=== PATIENT | female | born 1955 | race Caucasian/White ===

== ENCOUNTER 2025-02-12 16:37 | Inpatient (IN) | payer MEDICARE, SELFPAY ==
[2025-02-12] VITALS (62 sets, daily range): BP systolic 88–161; BP diastolic 54–108; PULSE 81–162; RESP 14–25; TEMP 35.8–36.4; O2SAT 93–98; BMI 37.4
--- NOTE | 2025-02-12 16:38 | ED_ITS ---
HPI - General Adult General Chief complaint: Weakness Stated complaint: Afib RVR, weakness Time Seen by Provider: 02/12/25 16:38 History of Present Illness HPI narrative: 69-year-old woman with care in [facility] [place] and at [facility], no prior records are available with [facility]. [facility] review indicates that she was admitted to [facility] from December 26 to December 30 for atrial fibrillation with rapid ventricular response. Multiple medical changes were made at that time. She was to stop taking chlorthalidone, Lovenox, lisinopril and metoprolol. She was to start taking carvedilol 25 mg b.i.d., furosemide 20 mg daily for heart failure, Entresto for heart failure, Eliquis 5 mg b.i.d. to prevent stroke secondary to her atrial fibrillation, Synthroid 125 mcg with a note made to recheck thyroid levels and metformin daily. She apparently had been on insulin but needed almost no insulin while hospitalized. Additional notes to consider starting Jardiance and spironolactone for her heart failure with reduced ejection fraction if kidney function recovers and to discuss continued marijuana cessation With her recent Located within [facility] admission she was treated with metoprolol, diltiazem and heparin drip with plans for cardioversion but converted spontaneously and remained in sinus rhythm at time of discharge on December 30. Echocardiogram showed reduced ejection fraction at 25-30%. Additional issues with that hospitalization included continued abdominal pain that was eventually determined to be constipation. There were significant questions regarding medication compliance. Notes from the [facility] records indicate that she had been admitted to [facility] with a urinary tract infection in early December. Patient was brought in by medics today, apparently her boyfriend with whom she lives called because she was increasingly confused. She is not oriented to events or place, complaints of shortness of breath, some mild abdominal pain and when asked about her [facility] hospitalization and medication changes she seems significantly puzzled and it is not clear that she has made any changes or has been taking any of her medications. Related Data Allergies Allergy/AdvReac Type Severity Reaction Status Date / Time No Known Drug Allergies Allergy Verified 02/12/25 17:00 Review of Systems Review of Systems ROS Unobtainable: Unobtainable due to mental status/LOC Patient History Medical History Anxiety Hypertension Type 2 diabetes mellitus Chronic constipation Hypothyroidism (acquired) Chronic atrial fibrillation Congestive heart failure Social History Smoking Status: Never smoker Exam Initial Vital Signs Initial Vital Signs: Vital Signs Pulse Rate 149 H 02/12/25 16:53 Respiratory Rate 25 H 02/12/25 16:53 Pulse Oximetry 96 02/12/25 16:53 General: Chronically ill-appearing, disheveled, slightly confused but able to speak in full sentences HEENT: Moist mucous membranes, normal sclera with reactive pupils, Respiratory: Lungs with mild basilar rales, no rhonchi, no significant respiratory distress Cardiac: Significant tachycardia, irregular Abdomen: Soft, obese, mild diffuse tenderness without rebound or guarding. No flank pain Skin: Warm and dry, no rashes Neurologic: No localizing neurologic findings, she is not oriented to place time or events Extremities: No trauma, mild bilateral lower extremity edema Psych: Cooperative, poor overall insight Course Orders Ordered: ED Orders 02/12/25 16:39 XR chest 1V Stat Urinalysis and Microscopic Stat EKG-12 Lead Stat 02/12/25 17:10 Complete Blood Count AUTO DIFF Stat Comprehensive Metabolic Panel Stat Lipase Stat Magnesium Stat NT-proBNP (BNP-Adult 18+) Stat Troponin I Stat 02/12/25 18:08 CT head/brain wo con Stat 02/12/25 21:03 XR abdomen 1V Stat Trop I [Troponin I] Stat Carvedilol (Carvedilol 12.5 Mg Tablet) 25 mg PO BID JOELLE Last Admin: 02/12/25 20:17 Dose: Not Given Documented By: Admin: 02/12/25 18:16 Dose: 25 mg Documented By: ES Diltiazem HCl 125 mg/ Sodium (Chloride) 125 mls @ 5 mls/hr IV TITRATE JOELLE; Protocol Last Titration: 02/12/25 20:12 Dose: 0 mg/hr, 0 mls/hr Documented By: Titration: 02/12/25 19:40 Dose: 5 mg/hr, 5 mls/hr Documented By: Titration: 02/12/25 19:32 Dose: 10 mg/hr, 10 mls/hr Documented By: Titration: 02/12/25 18:56 Dose: 15 mg/hr, 15 mls/hr Documented By: Titration: 02/12/25 18:21 Dose: 10 mg/hr, 10 mls/hr Documented By: Admin: 02/12/25 17:57 Dose: 5 mg/hr, 5 mls/hr Documented By: ACE Magnesium Sulfate (Magnesium Sulfate) 20 gm in 500 mls @ 25 mls/hr IV CONT JOELLE Discontinued Medications Diltiazem HCl (Diltiazem 25 Mg/5 Ml Sdv) 20 mg IV NOW ONE Stop: 02/12/25 17:42 Last Admin: 02/12/25 17:59 Dose: 20 mg Documented By: ACE Furosemide 80 mg/ Sodium (Chloride) 58 mls @ 116 mls/hr IV NOW ONE Stop: 02/12/25 21:04 Vital Signs Vital signs: Vital Signs - 8 hr 02/12/25 16:53 02/12/25 16:59 02/12/25 17:00 Temperature 97.5 F L Pulse Rate 149 H 159 H Respiratory Rate 25 H 17 Blood Pressure 146/106 H 161/108 H Pulse Oximetry 96 97 Oxygen Delivery Method Room Air 02/12/25 17:00 02/12/25 17:02 02/12/25 17:02 Temperature Pulse Rate 146 H 145 H Respiratory Rate 25 H 18 Blood Pressure 160/108 H Pulse Oximetry 97 98 Oxygen Delivery Method Room Air 02/12/25 17:30 02/12/25 17:57 02/12/25 17:58 Temperature Pulse Rate 157 H 154 H Respiratory Rate 19 Blood Pressure 135/90 135/90 Pulse Oximetry 95 Oxygen Delivery Method 02/12/25 17:58 02/12/25 17:59 02/12/25 18:00 Temperature Pulse Rate 162 H 159 H Respiratory Rate 20 Blood Pressure 135/90 149/97 H Pulse Oximetry 96 Oxygen Delivery Method 02/12/25 18:00 02/12/25 18:15 02/12/25 18:15 Temperature Pulse Rate 156 H 134 H Respiratory Rate 22 18 Blood Pressure 140/82 Pulse Oximetry 96 94 Oxygen Delivery Method 02/12/25 18:16 02/12/25 18:23 02/12/25 18:23 Temperature Pulse Rate 135 H 142 H Respiratory Rate 18 Blood Pressure 140/82 146/80 H Pulse Oximetry 95 Oxygen Delivery Method Room Air 02/12/25 18:30 02/12/25 18:41 02/12/25 18:41 Temperature Pulse Rate 132 H Respiratory Rate Blood Pressure 136/99 H Pulse Oximetry 96 95 Oxygen Delivery Method Room Air 02/12/25 18:54 02/12/25 18:54 02/12/25 19:00 Temperature Pulse Rate 132 H 121 H Respiratory Rate 24 24 Blood Pressure 137/76 Pulse Oximetry 95 96 Oxygen Delivery Method Room Air 02/12/25 19:00 02/12/25 19:10 02/12/25 19:10 Temperature Pulse Rate 114 H Respiratory Rate 22 Blood Pressure 131/79 138/73 Pulse Oximetry 95 Oxygen Delivery Method Room Air 02/12/25 19:30 02/12/25 19:30 02/12/25 19:32 Temperature Pulse Rate 108 H Respiratory Rate 25 H Blood Pressure 95/61 103/73 Pulse Oximetry 98 Oxygen Delivery Method 02/12/25 19:32 02/12/25 19:36 02/12/25 19:36 Temperature Pulse Rate 112 H 87 Respiratory Rate 24 24 Blood Pressure 101/68 Pulse Oximetry 96 96 Oxygen Delivery Method 02/12/25 19:38 02/12/25 19:39 02/12/25 19:39 Temperature Pulse Rate 107 H 91 H Respiratory Rate 21 Blood Pressure 108/71 Pulse Oximetry 97 96 Oxygen Delivery Method Room Air 02/12/25 19:40 02/12/25 19:40 02/12/25 19:46 Temperature Pulse Rate 95 H 95 H Respiratory Rate Blood Pressure 113/63 Pulse Oximetry 96 95 Oxygen Delivery Method Room Air 02/12/25 19:46 02/12/25 19:56 02/12/25 19:56 Temperature Pulse Rate 101 H Respiratory Rate Blood Pressure 143/70 H 94/54 L Pulse Oximetry 95 Oxygen Delivery Method 02/12/25 20:00 02/12/25 20:00 02/12/25 20:09 Temperature Pulse Rate 82 Respiratory Rate Blood Pressure 105/67 92/64 Pulse Oximetry 98 Oxygen Delivery Method 02/12/25 20:09 02/12/25 20:10 02/12/25 20:10 Temperature Pulse Rate 89 95 H Respiratory Rate 22 Blood Pressure 89/68 L Pulse Oximetry 97 97 Oxygen Delivery Method Room Air 02/12/25 20:12 02/12/25 20:12 02/12/25 20:15 Temperature Pulse Rate 95 H Respiratory Rate 21 Blood Pressure 96/71 88/69 L Pulse Oximetry 97 Oxygen Delivery Method 02/12/25 20:15 Temperature Pulse Rate 88 Respiratory Rate 17 Blood Pressure Pulse Oximetry 97 Oxygen Delivery Method Room Air Medical Decision Making Lab Data 02/12/25 17:10 02/12/25 17:10 Labs: Lab Results 02/12/25 02/12/25 Range/Units 17:03 17:10 WBC 7.9 (4.5-11.0) X10^3/uL RBC 3.61 L (4.0-5.2) X10^6/uL Hgb 10.7 L (12.0-16.0) g/dL Hct 33.0 L (36-46) % MCV 91.2 (80-100) fL MCH 29.6 (26-34) PG MCHC 32.4 (30-36) % RDW 17.4 H (11.6-14.8) % Plt Count 237 (150-400) X10^3/uL Neut % (Auto) 72.1 (50-75) % Lymph % (Auto) 15.3 L (25-40) % Real % (Auto) 10.5 (3-14) % Eos % (Auto) 1.5 L (2-4) % Baso % (Auto) 0.6 (0-2) % Neut # (Auto) 5700 (6423-8333) /uL Lymph # (Auto) 1200 (6940-2591) /uL Real # (Auto) 800 (0-900) /uL Eos # (Auto) 100 (0-450) /uL Baso # (Auto) 100 (0-100) /uL Sodium 137 (137-145) mmol/L Potassium 4.6 (3.4-5.1) mmol/L Chloride 108 H (98-107) mmol/L Carbon Dioxide 21 L (22-32) mmol/L BUN 40 H (7-17) mg/dL Creatinine 1.43 H (0.52-1.04) mg/dL Estimated GFR 40 L (>60) mL/min BUN/Creatinine Ratio 28.0 H (6-22) Glucose 192 H (70-99) mg/dL POC Whole Bld Glucose 189 H (70-99) mg/dL Calcium 8.5 (8.4-10.2) mg/dL Magnesium 1.1 L (1.6-2.3) mg/dL Total Bilirubin 0.5 (0.2-1.3) mg/dL AST 58 H (14-36) IU/L ALT 134 H (<35) IU/L Alkaline Phosphatase 111 (38-126) U/L Troponin I 0.069 H (0.01-0.034) ng/mL NT-Pro-B Natriuret Pep 15114 H (<125) pg/mL Total Protein 6.0 L (6.3-8.2) g/dL Albumin 3.1 L (3.5-5.0) g/dL Globulin 2.9 (1.7-4.1) g/dL Albumin/Globulin Ratio 1.1 (1.0-2.8) Lipase 16 L (23-300) U/L MDM Narrative Medical decision making narrative: CC: Atrial fibrillation with rapid ventricular response, Worsening confusion Complicating co-morbidities: Heart failure with reduced ejection fraction, medication noncompliance, diabetes, hypothyroidism, depression Data collected from: patient, medics Social determinants of health that may influence the patients condition: Lives with her boyfriend Medical records reviewed: See HPI for summary of [facility] recent hospital admission Current medication list should be carvedilol 25 mg 2, b.i.d. 20 mg furosemide daily Entresto 09/24/2025 b.i.d. Eliquis 5 mg b.i.d. Gabapentin 100 mg t.i.d. Lantus 30 units subcutaneous b.i.d. was held, lispro 5 mg b.i.d. was held Synthroid 125 mcg Glucophage 500 mg b.i.d. As needed sublingual nitro Prilosec 20 mg daily Paxil 40 mg Differential considered: AFib with rapid ventricular response with worsening congestive heart failure, fluid overload, acute alcohol intoxication, acute marijuana intoxication, acute coronary syndrome, stroke or intracranial hemorrhage, without fever, cough, chills doubt infectious etiology Exam documented above, pertinent findings include: Disheveled, atrial fibrillation, tachycardic, bibasilar rales, mild lower extremity edema, confusion Lab Test results independently reviewed as above. Pertinent findings: CBC shows a white count of 7.9. Hemoglobin of 10.7, it was 10.6 on December 30, platelets appropriate at 2:37 a.m. Chemistries show creatinine at 1.4, had been 1.67 a month ago. GFR slightly improved from 33 up to 40. Magnesium was low at 1.1 Lipase is low at 16 BNP significantly elevated at almost 19,000 Slightly elevated at 0.069 repeat 0.079 Anion gap is calculated at 8 Independently reviewed EKG: Atrial fibrillation at a rate of 151. No acute ischemic changes Imaging studies independently reviewed: Chest x-ray is unremarkable CT scan of the head does not show significant pathology X-ray of the abdomen shows mild stool without significant obstruction Consultations: Dr. Velázquez, cardiology, we will consult in the morning Treatments: Diltiazem drip, oral carvedilol, IV magnesium, IV furosemide Discussion: 69-year-old woman presents by medics with atrial fibrillation with rapid ventricular response, worsening congestive heart failure with presumed troponin leak. Troponins are lower than were noted with hospitalization in December. Rate has responded to diltiazem. She has had appropriate urine output after IV Lasix. There was no evidence of ischemia on her EKG and chest x-ray actually does not show dramatic volume overload Regarding her confusion I do not have a complete explanation. Alcohol, marijuana ammonia levels are pending, no intracranial abnormalities. Patient complains of abdominal pain that is not reproducible on palpation, constipation is suspected TSH and T4 are currently pending Glucose is elevated at 192 and anion gap is normal at 8. No evidence of DKA or HHS No leukocytosis, no signs or symptoms of infectious etiology or concerns for sepsis at this time With presentation so similar to that from December 26, I suspect that medication noncompliance has been a significant component of her current exacerbation of prior medical issues Patient will be admitted for control of her rapid atrial fibrillation, diuresis and attempts to maximize treatment for her congestive heart failure and treatment of assorted medical issues as listed above. With discharge she may well benefit with home health consult for medication management assistance. She is safe for transfer to the floor Discharge Plan Departure Patient Disposition: Admitted As Inpatient Clinical Impression: Atrial fibrillation with rapid ventricular response, Acute exacerbation of chronic heart failure, Elevated troponin, Acute confusion, Chronic constipation Admit Date/Time: 02/12/25 23:04 Admit Provider: Cameron Couch
--- NOTE | 2025-02-12 16:39 | DI.RAD.S_ITS ---
PROCEDURE: XR CHEST 1V INDICATIONS: a fib with RVR TECHNIQUE: One view of the chest was acquired. COMPARISON: [facility], CR, XR CHEST 1 VIEW, 12/26/2024, 18:16. FINDINGS: Surgical changes and devices: None. Lungs and pleura: Lungs are clear. No pleural effusions or pneumothorax. Mediastinum: Mediastinal contours appear normal. Heart size is significantly enlarged, stable compared to prior.. Bones and chest wall: No suspicious bony lesions. Overlying soft tissues appear unremarkable. IMPRESSION: Stable cardiomegaly. No acute pulmonary process. Dictated by: Jesus Guadarrama M.D. on 02/12/2025 at 17:00 Approved by: Jesus Guadarrama M.D. on 02/12/2025 at 17:00
--- NOTE | 2025-02-12 16:39 | EKG_ITS ---
[id number] [address] Test Date: 2025-02-12 Pat Name: Kirsten Ratliff Department: Room: Gender: Female Grid Caster: CONOR : 1955 Requested By: Order Number: [id number] Reading MD: Ted Arceo Measurements Intervals [place] Rate: 151 P: NC: QRS: -45 QRSD: 86 T: 128 QT: 312 QTc: 494 Interpretive Statements Critical Test Result: High HR Atrial fibrillation with rapid ventricular response Left anterior fascicular block Nonspecific ST and T wave abnormality Electronically Signed On 02-13-2025 17:27:20 PDT by Ted Arceo
[2025-02-12 17:21] LABS: Add Manual Diff / Slide Review NO; Hematocrit 33.0 % (36-46); Hemoglobin 10.7 g/dL (12.0-16.0); Lymphocytes Absolute Auto 1200 /uL (1100-4500); Mean Corpuscular HGB Conc 32.4 % (30-36); Mean Corpuscular Hemoglobin 29.6 PG (26-34); Mean Corpuscular Volume 91.2 fL (80-100); Platelet Count 237 X10^3/uL (150-400)
[2025-02-12 17:38] LABS: Alanine Aminotransferase 134 IU/L (<35); Albumin 3.1 g/dL (3.5-5.0); Albumin Globulin Ratio 1.1 (1.0-2.8); Alkaline Phosphatase 111 U/L (38-126); Blood Urea Nitrogen 40 mg/dL (7-17); Calcium 8.5 mg/dL (8.4-10.2); Carbon Dioxide 21 mmol/L (22-32); Chloride 108 mmol/L (98-107); Estimated Glomerular Filt Rate 40 mL/min (>60); Globulin 2.9 g/dL (1.7-4.1); Glucose 192 mg/dL (70-99); HEMOLYSIS < 15 (0-50); Lipase 16 U/L (23-300); Magnesium 1.1 mg/dL (1.6-2.3); Potassium 4.6 mmol/L (3.4-5.1); Sodium 137 mmol/L (137-145); Total Protein 6.0 g/dL (6.3-8.2)
[2025-02-12 17:50] LABS: NT-proBNP (BNP-Adult 18+) 18900 pg/mL (<125); Troponin I 0.069 ng/mL (0.01-0.034)
--- NOTE | 2025-02-12 18:08 | DI.CT.S_ITS ---
PROCEDURE: CT HEAD/BRAIN WO CON INDICATIONS: altered mental status TECHNIQUE: Noncontrast 4.5 mm thick angled axial sections acquired from the foramen magnum to the vertex, with coronal and sagittal reformats. For radiation dose reduction, the following was used: automated exposure control, adjustment of mA and/or kV according to patient size. COMPARISON: None. FINDINGS: Image quality: Diagnostic. CSF spaces: Basal cisterns are patent. No extra-axial fluid collections. The ventricles are symmetric in size and shape. Brain: No intracranial bleeds or mass effect. There is cerebral volume loss, with resultant ventricular and sulcal prominence. There are periventricular and deep white matter chronic small vessel ischemic changes. There is intracranial internal carotid artery atherosclerosis. Skull and face: Calvarium and visualized facial bones appear intact, without suspicious lesions. Sinuses: Visualized sinuses and mastoids are clear. IMPRESSION: No acute intracranial pathology. Dictated by: Jesus Guadarrama M.D. on 02/12/2025 at 19:01 Approved by: Jesus Guadarrama M.D. on 02/12/2025 at 19:02
--- NOTE | 2025-02-12 21:03 | DI.RAD.S_ITS ---
PROCEDURE: XR ABDOMEN 1V INDICATIONS: abdominal pain TECHNIQUE: One view of the abdomen acquired. COMPARISON: [facility], CT, CT ABDOMEN PELVIS WITH CONTRAST, 12/26/2024, 18:34. FINDINGS: Surgical changes and devices: None. Bowel: Bowel gas pattern is normal. Mild scattered colonic stool. Soft tissues: No suspicious abdominal calcifications. Visualized solid organ contours appear normal in size. Bones: No suspicious bony lesions. IMPRESSION: Mild stool without obstruction. Dictated by: Maria T Duncan M.D. on 02/12/2025 at 21:31 Approved by: Maria T Duncan M.D. on 02/12/2025 at 21:31
--- NOTE | 2025-02-12 22:12 | PC.NURSE ---
This RN verifies with provider Devang medications that are currently ordered. Per Provdier Devang patient is to get 2gm of magnesium and not 20gm as per order. Will call [facility] to correct order.
[2025-02-12] MEDS: FUROSEMIDE 80 MG in SODIUM CHLORIDE 0.9% 50 ML 116 MG IV (22:25)
[2025-02-12 22:59] LABS: Troponin I 0.079 ng/mL (0.01-0.034)
[2025-02-12] MEDS: MAGNESIUM SULFATE 2 GM/50 ML PIGGYBACK IV (23:02)
[2025-02-13] VITALS (59 sets, daily range): BP systolic 92–152; BP diastolic 57–102; PULSE 67–126; RESP 0–35; TEMP 36–36.5; O2SAT 89–98; BMI 35.9
--- NOTE | 2025-02-13 00:10 | PC.WOUNDPHOT ---
under right breast under left breast right groin left groin coccyx
[2025-02-13 00:35] LABS: Ammonia (NH3) < 9 umol/L (9-30); Ethanol (ETOH) < 10 mg/dL (<10)
[2025-02-13] MEDS: HEPARIN 5,000 UNIT/ML VIAL 5000 UNIT SUBCUT (01:19)
[2025-02-13 01:46] LABS: MRSA (Nasal) PCR NOT DETECTED (Not Detect)
[2025-02-13 02:04] LABS: Appearance Urine UA CLEAR; Bilirubin Urine UA NEGATIVE (NEGATIVE); Color Urine UA YELLOW; Glucose Urine UA NEGATIVE (Negative); Ketones Urine UA NEGATIVE (NEGATIVE); Leukocyte Esterase Urine UA 1+ (NEGATIVE); Nitrite Urine UA NEGATIVE (Negative); Occult Blood Urine UA NEGATIVE (Negative); Protein Urine UA NEGATIVE (Negative); Specific Gravity Urine UA 1.010 (1.000-1.035); Urobilinogen Urine UA 0.2 E.U./dL (0.2)
[2025-02-13 02:21] LABS: UR Morphine/Opiate cutoff 300 Negative (Negative); Ur Specific Gravity Normal (Normal); Urine MDMA Negative (Negative); Urine Methamphetamines Negative (Negative); Urine Tetrahydrocannabinol Positive (Negative); Urine Tricyclic Antidepressant Positive (Negative); pH Urine UA 5.5 (4.5-8.0)
[2025-02-13 02:22] LABS: Culture Indicated Urine Specimen Cultured
[2025-02-13] MEDS: ACETAMINOPHEN 325 MG TABLET 650 MG PO (03:38)
[2025-02-13 05:25] LABS: Add Manual Diff / Slide Review NO; Hematocrit 30.5 % (36-46); Hemoglobin 9.9 g/dL (12.0-16.0); Lymphocytes Absolute Auto 1800 /uL (1100-4500); Mean Corpuscular HGB Conc 32.6 % (30-36); Mean Corpuscular Hemoglobin 29.4 PG (26-34); Mean Corpuscular Volume 90.3 fL (80-100); Platelet Count 211 X10^3/uL (150-400)
[2025-02-13 05:41] LABS: Blood Urea Nitrogen 40 mg/dL (7-17); Calcium 8.5 mg/dL (8.4-10.2); Carbon Dioxide 21 mmol/L (22-32); Chloride 107 mmol/L (98-107); Estimated Glomerular Filt Rate 40 mL/min (>60); Glucose 113 mg/dL (70-99); HEMOLYSIS < 15 (0-50); Potassium 4.0 mmol/L (3.4-5.1); Sodium 137 mmol/L (137-145)
--- NOTE | 2025-02-13 06:24 | P.HP_ITS ---
History of Present Illness History of Present Illness Date Patient Seen: 02/13/25 Time Patient Seen: 01:22 Chief complaint: Afib RVR, weakness Narrative: 69-year-old female with past medical history of atrial fibrillation on Eliquis, severe chronic systolic heart failure with an EF of 25%, hypertension, anxiety and diabetes presents with generalized weakness and possible confusion. Per report the patient's boyfriend who she lives with called EMS because of possible increased confusion. It was reported that the patient was not oriented to place and was complaining of mild abdominal pain. In addition it is unclear if the patient has been compliant with her medication which include Lasix, Eliquis, metoprolol and Synthroid. The patient also was recently hospitalized at [facility] with similar complaints of confusion and abdominal pain. The patient then did have atrial fibrillation with RVR. However during my interview the patient was oriented to place person and time. The patient denies any fever, chills, nausea, vomiting, diarrhea, chest pain or shortness of breath. In the emergency room, the patient was hemodynamically stable but was in A-fib with RVR. Labs were relatively benign except for creatinine 1.4 glucose of 192 troponin 0.06 and BNP of 18,900. AST mildly elevated at [address] of the head shows no acute finding and x-ray of the abdomen shows only mild stool without signs of small bowel obstruction. Chest x-ray however did not show obvious signs of pulmonary edema. The patient was given IV Lasix 80 mg as well as diltiazem drip was initiated. Dr. eVlázquez from cardiology was consulted and a request for admission for ongoing management of A-fib with RVR. [facility] Medical History Anxiety Hypertension Type 2 diabetes mellitus Chronic constipation Hypothyroidism (acquired) Chronic atrial fibrillation Congestive heart failure Social History household members: significant other Smoking Status: Never smoker Meds Home Medications and Allergies Allergies Allergy/AdvReac Type Severity Reaction Status Date / Time No Known Drug Allergies Allergy Verified 02/12/25 17:00 Review of Systems Review of Systems ROS: Yes All systems reviewed with the patient and are negative except as otherwise documented Exam Vital Signs (past 8 hours): - 02/12/25 22:28 02/12/25 22:28 02/12/25 22:30 Temperature Pulse Rate 105 H 103 H Respiratory Rate Blood Pressure 112/83 Pulse Oximetry 97 97 Oxygen Delivery Method Oxygen Flow Rate 02/12/25 22:31 02/12/25 22:31 02/12/25 22:42 Temperature Pulse Rate 104 H 110 H Respiratory Rate Blood Pressure 134/92 H Pulse Oximetry 96 97 Oxygen Delivery Method Room Air Oxygen Flow Rate 02/12/25 22:42 02/12/25 22:50 02/12/25 22:50 Temperature Pulse Rate 105 H Respiratory Rate 16 Blood Pressure 125/86 126/89 Pulse Oximetry 98 Oxygen Delivery Method Oxygen Flow Rate 02/12/25 23:00 02/12/25 23:00 02/12/25 23:11 Temperature Pulse Rate 110 H Respiratory Rate Blood Pressure 122/82 117/93 H Pulse Oximetry 98 Oxygen Delivery Method Oxygen Flow Rate 02/12/25 23:11 02/12/25 23:20 02/12/25 23:20 Temperature Pulse Rate 114 H 113 H Respiratory Rate Blood Pressure 125/93 H Pulse Oximetry 98 98 Oxygen Delivery Method Oxygen Flow Rate 02/12/25 23:30 02/12/25 23:30 02/12/25 23:45 Temperature 96.5 F L Pulse Rate 108 H 115 H Respiratory Rate 21 Blood Pressure 132/96 H 128/90 Pulse Oximetry 97 98 Oxygen Delivery Method Oxygen Flow Rate 0 02/13/25 00:00 02/13/25 00:07 02/13/25 00:30 Temperature Pulse Rate 110 H 112 H Respiratory Rate 16 9 L Blood Pressure Pulse Oximetry 98 Oxygen Delivery Method Room Air Oxygen Flow Rate 02/13/25 01:00 02/13/25 01:00 02/13/25 01:18 Temperature Pulse Rate 118 H 114 H Respiratory Rate 13 Blood Pressure 112/82 112/82 Pulse Oximetry 95 Oxygen Delivery Method Oxygen Flow Rate 02/13/25 01:30 02/13/25 02:00 02/13/25 02:00 Temperature Pulse Rate 114 H 113 H Respiratory Rate 17 25 H Blood Pressure 125/74 Pulse Oximetry 94 97 Oxygen Delivery Method Oxygen Flow Rate 02/13/25 02:30 02/13/25 02:33 02/13/25 02:33 Temperature Pulse Rate 117 H 115 H Respiratory Rate 16 16 Blood Pressure 138/87 Pulse Oximetry 94 96 Oxygen Delivery Method Oxygen Flow Rate 02/13/25 03:00 02/13/25 03:00 02/13/25 03:30 Temperature 96.8 F L Pulse Rate 114 H 126 H Respiratory Rate 14 24 Blood Pressure 134/94 H Pulse Oximetry 91 Oxygen Delivery Method Oxygen Flow Rate 0 02/13/25 03:34 02/13/25 03:34 02/13/25 04:00 Temperature Pulse Rate 115 H 101 H Respiratory Rate 9 L 15 Blood Pressure 122/78 Pulse Oximetry 97 93 Oxygen Delivery Method Oxygen Flow Rate 02/13/25 04:00 02/13/25 04:30 02/13/25 04:30 Temperature Pulse Rate 103 H Respiratory Rate 16 Blood Pressure 132/87 127/85 Pulse Oximetry 91 Oxygen Delivery Method Oxygen Flow Rate 02/13/25 05:00 02/13/25 05:00 02/13/25 05:30 Temperature Pulse Rate 106 H 108 H Respiratory Rate 18 15 Blood Pressure 128/87 Pulse Oximetry 89 L 90 L Oxygen Delivery Method Oxygen Flow Rate 02/13/25 05:30 02/13/25 06:00 02/13/25 06:00 Temperature Pulse Rate 104 H Respiratory Rate 26 H Blood Pressure 129/90 129/97 H Pulse Oximetry 89 L Oxygen Delivery Method Oxygen Flow Rate Oxygen Delivery Method Room Air Oxygen Flow Rate 0 Narrative Exam Narrative: Physical Exam: GENERAL: The patient is not in any acute distressed. Awake and alert. HEENT: Nonicteric sclerae, PERRLA, EOMI. Oropharynx clear. Moist mucous membranes. Conjunctivae appear well perfused. HEART: Tachycardic with irregrhythm without murmurs. 1+ lower extremities edema. LUNGS: Clear to auscultation bilaterally. No wheezing, crackles or rhonchi ABDOMEN: Soft, positive bowel sounds, nontender. SKIN: No rash, no excessive bruising, petechiae, or purpura. NEUROLOGIC: AxO x 3. Cranial nerves II-XII intact without motor/sensory deficit. Objective Labs 02/13/25 04:20 02/13/25 04:20 Labs: Laboratory Results - last 24 hr 02/12/25 02/12/25 02/12/25 17:03 17:10 22:27 WBC 7.9 RBC 3.61 L Hgb 10.7 L Hct 33.0 L MCV 91.2 MCH 29.6 MCHC 32.4 RDW 17.4 H Plt Count 237 Neut % (Auto) 72.1 Lymph % (Auto) 15.3 L Adams % (Auto) 10.5 Eos % (Auto) 1.5 L Baso % (Auto) 0.6 Neut # (Auto) 5700 Lymph # (Auto) 1200 Adams # (Auto) 800 Eos # (Auto) 100 Baso # (Auto) 100 Sodium 137 Potassium 4.6 Chloride 108 H Carbon Dioxide 21 L BUN 40 H Creatinine 1.43 H Estimated GFR 40 L BUN/Creatinine Ratio 28.0 H Glucose 192 H POC Whole Bld Glucose 189 H Calcium 8.5 Magnesium 1.1 L Total Bilirubin 0.5 AST 58 H ALT 134 H Alkaline Phosphatase 111 Ammonia Troponin I 0.069 H 0.079 H NT-Pro-B Natriuret Pep 82780 H Total Protein 6.0 L Albumin 3.1 L Globulin 2.9 Albumin/Globulin Ratio 1.1 Lipase 16 L Urine Color Urine Appearance Urine pH Ur Specific [place] Urine Protein Urine Glucose (UA) Urine Ketones Urine Occult Blood Urine Nitrate Urine Bilirubin Urine Urobilinogen Ur Leukocyte Esterase Urine RBC Urine WBC Ur Squamous Epith Cells Urine Bacteria Ur Culture Indicated? Vol Urine Centrifuged Nasal Screen MRSA (PCR) U Opiates 300ng/mL cut Ur Oxycodone Screen Urine Methadone Screen Ur Barbiturates Screen U Tricyclic Antidepress Ur Phencyclidine Scrn Ur Amphetamines Screen U Methamphetamines Scrn Ur MDMA Scrn (Ecstasy) U Benzodiazepines Scrn Urine Cocaine Screen U Marijuana (THC) Screen Urine Specific [place] Ethyl Alcohol Ur Creatinine 02/13/25 02/13/25 02/13/25 00:12 00:15 01:45 WBC RBC Hgb Hct MCV MCH MCHC RDW Plt Count Neut % (Auto) Lymph % (Auto) Adams % (Auto) Eos % (Auto) Baso % (Auto) Neut # (Auto) Lymph # (Auto) [place] # (Auto) Eos # (Auto) Baso # (Auto) Sodium Potassium Chloride Carbon Dioxide BUN Creatinine Estimated GFR BUN/Creatinine Ratio Glucose POC Whole Bld Glucose Calcium Magnesium Total Bilirubin AST ALT Alkaline Phosphatase Ammonia < 9 L Troponin I NT-Pro-B Natriuret Pep Total Protein Albumin Globulin Albumin/Globulin Ratio Lipase Urine Color Yellow Urine Appearance Clear Urine pH 5.5 Ur Specific [place] 1.010 Urine Protein Negative Urine Glucose (UA) Negative Urine Ketones Negative Urine Occult Blood Negative Urine Nitrate Negative Urine Bilirubin Negative Urine Urobilinogen 0.2 Ur Leukocyte Esterase 1+ H Urine RBC None seen Urine WBC 0-1/hpf Ur Squamous Epith Cells 0-1 /hpf Urine Bacteria Few (2-10) H Ur Culture Indicated? Specimen cultured Vol Urine Centrifuged 10ml (spun) Nasal Screen MRSA (PCR) Not detected U Opiates 300ng/mL cut Negative Ur Oxycodone Screen Negative Urine Methadone Screen Negative Ur Barbiturates Screen Negative U Tricyclic Antidepress Positive H Ur Phencyclidine Scrn Negative Ur Amphetamines Screen Negative U Methamphetamines Scrn Negative Ur MDMA Scrn (Ecstasy) Negative U Benzodiazepines Scrn Negative Urine Cocaine Screen Negative U Marijuana (THC) Screen Positive H Urine Specific [place] Ethyl Alcohol < 10 Ur Creatinine 02/13/25 02/13/25 01:45 04:20 WBC 6.1 RBC 3.38 L Hgb 9.9 L Hct 30.5 L MCV 90.3 MCH 29.4 MCHC 32.6 RDW 17.1 H Plt Count 211 Neut % (Auto) 53.7 Lymph % (Auto) 29.1 [place] % (Auto) 12.3 Eos % (Auto) 4.1 H Baso % (Auto) 0.8 Neut # (Auto) 3300 Lymph # (Auto) 1800 [place] # (Auto) 700 Eos # (Auto) 200 Baso # (Auto) 0 Sodium 137 Potassium 4.0 Chloride 107 Carbon Dioxide 21 L BUN 40 H Creatinine 1.44 H Estimated GFR 40 L BUN/Creatinine Ratio 27.8 H Glucose 113 H POC Whole Bld Glucose Calcium 8.5 Magnesium Total Bilirubin AST ALT Alkaline Phosphatase Ammonia Troponin I NT-Pro-B Natriuret Pep Total Protein Albumin Globulin Albumin/Globulin Ratio Lipase Urine Color Urine Appearance Urine pH Normal Ur Specific [place] Urine Protein Urine Glucose (UA) Urine Ketones Urine Occult Blood Urine Nitrate Urine Bilirubin Urine Urobilinogen Ur Leukocyte Esterase Urine RBC Urine WBC Ur Squamous Epith Cells Urine Bacteria Ur Culture Indicated? Vol Urine Centrifuged Nasal Screen MRSA (PCR) U Opiates 300ng/mL cut Ur Oxycodone Screen Urine Methadone Screen Ur Barbiturates Screen U Tricyclic Antidepress Ur Phencyclidine Scrn Ur Amphetamines Screen U Methamphetamines Scrn Ur MDMA Scrn (Ecstasy) U Benzodiazepines Scrn Urine Cocaine Screen U Marijuana (THC) Screen Urine Specific [place] Normal Ethyl Alcohol Ur Creatinine Normal Assessment & Plan Assessment & Plan narrative: Atrial fibrillation with RVR. Admit the patient to ICU. Continue diltiazem drip. Will need to follow-up on TSH and free T4 which is still pending. Once rate is controlled consider resuming home medication including metoprolol. Appreciate further input from Dr. Sin from cardiology who was consulted. Mild acute on chronic severe systolic heart failure with an EF of 25%. Of note BNP is 18,900. Patient saturating well on room air and chest x-ray does not show signs of clear volume overload. Patient did receive IV Lasix 80 mg in the ER. Will continue IV Lasix 40 mg every 6 hours. Monitor renal function and urine output. Strict I's and O's and daily weight. Mild elevated troponin. Likely due to demand ischemia from A-fib with RVR. Patient denies any chest pain. Will repeat another troponin. Confusion. Patient is back to baseline with her mentation. Patient is oriented x 4. CT head is negative. Unclear etiology. Monitor for now. Diabetes. Monitor glucose with subcu insulin. Note glucose in the 190s. Hypertension. Monitor blood pressure and resume home medication accordingly. DVT prophylaxis Eliquis. CODE STATUS full code. Disposition likely home in 2 days - As the provider of this telehealth evaluation, requested by the patient's evaluating physician, I attest that I introduced myself to the patient, provided my credentials and determined that telemedicine via a real-time, 2 way interactive audio and video platform is an appropriate and effective means of providing this service. - I reviewed the patient's chart and had a discussion with the member of the patient's treatment team. - The patient and I mutually agreed with continuation of this evaluation via telemedicine. The patient consented for the telemedicine evaluation. - This virtual encounter was taken place from [place] by Dr. Cameron Couch. The patient was evaluated at [facility]. The encounter was approximately 35 minutes. The nurse was present during the entire time of the encounter and was able to assists with exam/stethoscope. Time-Based Coding :: [TOTAL MINUTES] spent with patient and on the chart (including review of chart, obtaining history, exam, reviewing outside data, placing orders, documenting exam and treatment plan, and counseling patient) on [DATE]. Quality VTE Deep Vein Thrombosis/Pulmonary Embolism Present on Admission: No
[2025-02-13 06:42] LABS: TSH w/ Reflex to FT4 1.86 uIU/mL (0.47-4.68)
[2025-02-13] MEDS: FUROSEMIDE 40 MG/4 ML VIAL IV ×3 (06:51→22:01)
--- NOTE | 2025-02-13 07:30 | PC.ADMIT ---
[address] Admission Note: The patient,Kirsten Ratliff,69 y/o, was given written information regarding hospital policies, unit procedures and contact persons. Patient's smoking status: Never smoker. Vital Signs - 8 hr 02/12/25 23:45 02/13/25 00:00 02/13/25 00:07 Temperature 96.5 F L Pulse Rate 115 H 110 H Respiratory Rate 21 16 Blood Pressure 128/90 Pulse Oximetry 98 Oxygen Delivery Method Room Air Oxygen Flow Rate 0 02/13/25 00:30 02/13/25 01:00 02/13/25 01:00 Temperature Pulse Rate 112 H 118 H Respiratory Rate 9 L 13 Blood Pressure 112/82 Pulse Oximetry 98 95 Oxygen Delivery Method Oxygen Flow Rate 02/13/25 01:18 02/13/25 01:30 02/13/25 02:00 Temperature Pulse Rate 114 H 114 H 113 H Respiratory Rate 17 25 H Blood Pressure 112/82 Pulse Oximetry 94 97 Oxygen Delivery Method Oxygen Flow Rate 02/13/25 02:00 02/13/25 02:30 02/13/25 02:33 Temperature Pulse Rate 117 H 115 H Respiratory Rate 16 16 Blood Pressure 125/74 Pulse Oximetry 94 96 Oxygen Delivery Method Oxygen Flow Rate 02/13/25 02:33 02/13/25 03:00 02/13/25 03:00 Temperature 96.8 F L Pulse Rate 114 H Respiratory Rate 14 Blood Pressure 138/87 134/94 H Pulse Oximetry 91 Oxygen Delivery Method Oxygen Flow Rate 0 02/13/25 03:30 02/13/25 03:34 02/13/25 03:34 Temperature Pulse Rate 126 H 115 H Respiratory Rate 24 9 L Blood Pressure 122/78 Pulse Oximetry 97 Oxygen Delivery Method Oxygen Flow Rate 02/13/25 04:00 02/13/25 04:00 02/13/25 04:30 Temperature Pulse Rate 101 H 103 H Respiratory Rate 15 16 Blood Pressure 132/87 Pulse Oximetry 93 91 Oxygen Delivery Method Oxygen Flow Rate 02/13/25 04:30 02/13/25 05:00 02/13/25 05:00 Temperature Pulse Rate 106 H Respiratory Rate 18 Blood Pressure 127/85 128/87 Pulse Oximetry 89 L Oxygen Delivery Method Oxygen Flow Rate 02/13/25 05:30 02/13/25 05:30 02/13/25 06:00 Temperature Pulse Rate 108 H 104 H Respiratory Rate 15 26 H Blood Pressure 129/90 Pulse Oximetry 90 L 89 L Oxygen Delivery Method Oxygen Flow Rate 02/13/25 06:00 Temperature Pulse Rate Respiratory Rate Blood Pressure 129/97 H Pulse Oximetry Oxygen Delivery Method Oxygen Flow Rate Patient admitted to ICU room 226 at 2345. Orient[address] to [address] and year, forgetful. Does use call light appropriately. HR A-fib rate 110-120, diltiazem gtt restarted at 5mg/hr, increased to 10mg/hr. Voiding on BSC. IV Lasix given. Photos taken of rashes and excoriation.
--- NOTE | 2025-02-13 07:34 | PM.PN.1 ---
Subjective Subjective Interval history: Admission note: S: 69-year-old female with past medical history of atrial fibrillation on Eliquis, severe chronic systolic heart failure with an EF of 25%, hypertension, anxiety and diabetes presents with generalized weakness and possible confusion. Per report the patient's boyfriend who she lives with called EMS because of possible increased confusion. It was reported that the patient was not oriented to place and was complaining of mild abdominal pain. In addition it is unclear if the patient has been compliant with her medication which include Lasix, Eliquis, metoprolol and Synthroid. The patient also was recently hospitalized at [facility] with similar complaints of confusion and abdominal pain. The patient then did have atrial fibrillation with RVR. However during my interview the patient was oriented to place person and time. The patient denies any fever, chills, nausea, vomiting, diarrhea, chest pain or shortness of breath. In the emergency room, the patient was hemodynamically stable but was in A-fib with RVR. Labs were relatively benign except for creatinine 1.4 glucose of 192 troponin 0.06 and BNP of 18,900. AST mildly elevated at [address] of the head shows no acute finding and x-ray of the abdomen shows only mild stool without signs of small bowel obstruction. Chest x-ray however did not show obvious signs of pulmonary edema. The patient was given IV Lasix 80 mg as well as diltiazem drip was initiated. Dr. Velázquez from cardiology was consulted and a request for admission for ongoing management of A-fib with RVR. PLAN: Admit the patient to ICU. Continue diltiazem drip. Will need to follow-up on TSH and free T4 which is still pending. Once rate is controlled consider resuming home medication including metoprolol. acute on chronic severe systolic heart failure with an EF of 25%. IV Lasix. O: VS below. NAD, alert and oriented. Fluent speech. Lungs are clear, normal rate and effort. Heart is regular, no murmur gallop or rub. Abdomen is soft, non distended. Extremities are free of edema. A/P: 1. Atrial fibrillation with RVR. 2. Mild acute on chronic severe systolic heart failure with an EF of 25%. 3. Mild elevated troponin. Likely due to demand ischemia from A-fib with RVR. 4. Confusion. Patient is back to baseline with her mentation. 5. Diabetes 2. PLAN: -cardiology consultation appreciated. Recommendations include simplifying her med skin rash and and stopping chlorthalidone, switching Lasix to torsemide 40 daily, continuing carvedilol b.i.d. for rate control as well as Entresto. Recommendation to stop lisinopril and keep other medications without change. Apixaban as recommended to prevent thromboembolic risk of atrial fibrillation. DVT prophylaxis Eliquis. CODE STATUS full code. She requires a 2nd midnight in the hospital for ongoing management of her atrial fibrillation and acute systolic heart failure. Disposition likely home in 1-2 days Exam Vital Signs (past 8 hours): - 02/12/25 23:45 02/13/25 00:00 02/13/25 00:07 Temperature 96.5 F L Pulse Rate 115 H 110 H Respiratory Rate 21 16 Blood Pressure 128/90 Pulse Oximetry 98 Oxygen Delivery Method Room Air Oxygen Flow Rate 0 02/13/25 00:30 02/13/25 01:00 02/13/25 01:00 Temperature Pulse Rate 112 H 118 H Respiratory Rate 9 L 13 Blood Pressure 112/82 Pulse Oximetry 98 95 Oxygen Delivery Method Oxygen Flow Rate 02/13/25 01:18 02/13/25 01:30 02/13/25 02:00 Temperature Pulse Rate 114 H 114 H 113 H Respiratory Rate 17 25 H Blood Pressure 112/82 Pulse Oximetry 94 97 Oxygen Delivery Method Oxygen Flow Rate 02/13/25 02:00 02/13/25 02:30 02/13/25 02:33 Temperature Pulse Rate 117 H 115 H Respiratory Rate 16 16 Blood Pressure 125/74 Pulse Oximetry 94 96 Oxygen Delivery Method Oxygen Flow Rate 02/13/25 02:33 02/13/25 03:00 02/13/25 03:00 Temperature 96.8 F L Pulse Rate 114 H Respiratory Rate 14 Blood Pressure 138/87 134/94 H Pulse Oximetry 91 Oxygen Delivery Method Oxygen Flow Rate 0 02/13/25 03:30 02/13/25 03:34 02/13/25 03:34 Temperature Pulse Rate 126 H 115 H Respiratory Rate 24 9 L Blood Pressure 122/78 Pulse Oximetry 97 Oxygen Delivery Method Oxygen Flow Rate 02/13/25 04:00 02/13/25 04:00 02/13/25 04:30 Temperature Pulse Rate 101 H 103 H Respiratory Rate 15 16 Blood Pressure 132/87 Pulse Oximetry 93 91 Oxygen Delivery Method Oxygen Flow Rate 02/13/25 04:30 02/13/25 05:00 02/13/25 05:00 Temperature Pulse Rate 106 H Respiratory Rate 18 Blood Pressure 127/85 128/87 Pulse Oximetry 89 L Oxygen Delivery Method Oxygen Flow Rate 02/13/25 05:30 02/13/25 05:30 02/13/25 06:00 Temperature Pulse Rate 108 H 104 H Respiratory Rate 15 26 H Blood Pressure 129/90 Pulse Oximetry 90 L 89 L Oxygen Delivery Method Oxygen Flow Rate 02/13/25 06:00 Temperature Pulse Rate Respiratory Rate Blood Pressure 129/97 H Pulse Oximetry Oxygen Delivery Method Oxygen Flow Rate Oxygen Delivery Method Room Air Oxygen Flow Rate 0 Objective Labs 02/13/25 04:20 02/13/25 04:20 Labs: Laboratory Results - last 24 hr 02/12/25 02/12/25 02/12/25 17:03 17:10 22:27 WBC 7.9 RBC 3.61 L Hgb 10.7 L Hct 33.0 L MCV 91.2 MCH 29.6 MCHC 32.4 RDW 17.4 H Plt Count 237 Neut % (Auto) 72.1 Lymph % (Auto) 15.3 L [place] % (Auto) 10.5 Eos % (Auto) 1.5 L Baso % (Auto) 0.6 Neut # (Auto) 5700 Lymph # (Auto) 1200 [place] # (Auto) 800 Eos # (Auto) 100 Baso # (Auto) 100 Sodium 137 Potassium 4.6 Chloride 108 H Carbon Dioxide 21 L BUN 40 H Creatinine 1.43 H Estimated GFR 40 L BUN/Creatinine Ratio 28.0 H Glucose 192 H POC Whole Bld Glucose 189 H Calcium 8.5 Magnesium 1.1 L Total Bilirubin 0.5 AST 58 H ALT 134 H Alkaline Phosphatase 111 Ammonia Troponin I 0.069 H 0.079 H NT-Pro-B Natriuret Pep 74842 H Total Protein 6.0 L Albumin 3.1 L Globulin 2.9 Albumin/Globulin Ratio 1.1 Lipase 16 L TSH Urine Color Urine Appearance Urine pH Ur Specific [place] Urine Protein Urine Glucose (UA) Urine Ketones Urine Occult Blood Urine Nitrate Urine Bilirubin Urine Urobilinogen Ur Leukocyte Esterase Urine RBC Urine WBC Ur Squamous Epith Cells Urine Bacteria Ur Culture Indicated? Vol Urine Centrifuged Nasal Screen MRSA (PCR) U Opiates 300ng/mL cut Ur Oxycodone Screen Urine Methadone Screen Ur Barbiturates Screen U Tricyclic Antidepress Ur Phencyclidine Scrn Ur Amphetamines Screen U Methamphetamines Scrn Ur MDMA Scrn (Ecstasy) U Benzodiazepines Scrn Urine Cocaine Screen U Marijuana (THC) Screen Urine Specific [place] Ethyl Alcohol Ur Creatinine 02/13/25 02/13/25 02/13/25 00:12 00:15 01:45 WBC RBC Hgb Hct MCV MCH MCHC RDW Plt Count Neut % (Auto) Lymph % (Auto) [place] % (Auto) Eos % (Auto) Baso % (Auto) Neut # (Auto) Lymph # (Auto) [place] # (Auto) Eos # (Auto) Baso # (Auto) Sodium Potassium Chloride Carbon Dioxide BUN Creatinine Estimated GFR BUN/Creatinine Ratio Glucose POC Whole Bld Glucose Calcium Magnesium Total Bilirubin AST ALT Alkaline Phosphatase Ammonia < 9 L Troponin I NT-Pro-B Natriuret Pep Total Protein Albumin Globulin Albumin/Globulin Ratio Lipase TSH Urine Color Yellow Urine Appearance Clear Urine pH 5.5 Ur Specific [place] 1.010 Urine Protein Negative Urine Glucose (UA) Negative Urine Ketones Negative Urine Occult Blood Negative Urine Nitrate Negative Urine Bilirubin Negative Urine Urobilinogen 0.2 Ur Leukocyte Esterase 1+ H Urine RBC None seen Urine WBC 0-1/hpf Ur Squamous Epith Cells 0-1 /hpf Urine Bacteria Few (2-10) H Ur Culture Indicated? Specimen cultured Vol Urine Centrifuged 10ml (spun) Nasal Screen MRSA (PCR) Not detected U Opiates 300ng/mL cut Negative Ur Oxycodone Screen Negative Urine Methadone Screen Negative Ur Barbiturates Screen Negative U Tricyclic Antidepress Positive H Ur Phencyclidine Scrn Negative Ur Amphetamines Screen Negative U Methamphetamines Scrn Negative Ur MDMA Scrn (Ecstasy) Negative U Benzodiazepines Scrn Negative Urine Cocaine Screen Negative U Marijuana (THC) Screen Positive H Urine Specific [place] Ethyl Alcohol < 10 Ur Creatinine 02/13/25 02/13/25 01:45 04:20 WBC 6.1 RBC 3.38 L Hgb 9.9 L Hct 30.5 L MCV 90.3 MCH 29.4 MCHC 32.6 RDW 17.1 H Plt Count 211 Neut % (Auto) 53.7 Lymph % (Auto) 29.1 [place] % (Auto) 12.3 Eos % (Auto) 4.1 H Baso % (Auto) 0.8 Neut # (Auto) 3300 Lymph # (Auto) 1800 [place] # (Auto) 700 Eos # (Auto) 200 Baso # (Auto) 0 Sodium 137 Potassium 4.0 Chloride 107 Carbon Dioxide 21 L BUN 40 H Creatinine 1.44 H Estimated GFR 40 L BUN/Creatinine Ratio 27.8 H Glucose 113 H POC Whole Bld Glucose Calcium 8.5 Magnesium Total Bilirubin AST ALT Alkaline Phosphatase Ammonia Troponin I NT-Pro-B Natriuret Pep Total Protein Albumin Globulin Albumin/Globulin Ratio Lipase TSH 1.86 Urine Color Urine Appearance Urine pH Normal Ur Specific [place] Urine Protein Urine Glucose (UA) Urine Ketones Urine Occult Blood Urine Nitrate Urine Bilirubin Urine Urobilinogen Ur Leukocyte Esterase Urine RBC Urine WBC Ur Squamous Epith Cells Urine Bacteria Ur Culture Indicated? Vol Urine Centrifuged Nasal Screen MRSA (PCR) U Opiates 300ng/mL cut Ur Oxycodone Screen Urine Methadone Screen Ur Barbiturates Screen U Tricyclic Antidepress Ur Phencyclidine Scrn Ur Amphetamines Screen U Methamphetamines Scrn Ur MDMA Scrn (Ecstasy) U Benzodiazepines Scrn Urine Cocaine Screen U Marijuana (THC) Screen Urine Specific [place] Normal Ethyl Alcohol Ur Creatinine Normal PFSH Medical History Anxiety Hypertension Type 2 diabetes mellitus Chronic constipation Hypothyroidism (acquired) Chronic atrial fibrillation Congestive heart failure Social History household members: significant other Smoking Status: Never smoker Type(s) of exercise: none Assessment & Plan Time-Based Coding :: [TOTAL MINUTES] spent with patient and on the chart (including review of chart, obtaining history, exam, reviewing outside data, placing orders, documenting exam and treatment plan, and counseling patient) on [DATE]. Quality VTE Deep Vein Thrombosis/Pulmonary Embolism Present on Admission: No
[2025-02-13] MEDS: APIXABAN 5 MG TABLET PO ×2 (08:29→20:38)
--- NOTE | 2025-02-13 11:27 | PM.CN ---
History of Present Illness Consult details Date Patient Seen: 02/13/25 Time Patient Seen: 11:27 Chief complaint: Afib RVR, weakness Requesting provider: Ted Arceo Narrative: Clinical question atrial fibrillation with rapid ventricular rate This is a 69-year-old female with known history paroxysmal atrial fibrillation hypothyroidism type 2 diabetes 3-4yrs recurrent urinary tract infections hypertension anxiety class 2 obesity body mass index of 35.60 admitted to the hospital with acute confusion. Patient was in atrial fibrillation with rapid ventricular rate. Patient has had multiple hospital admissions brisk visit by recent urinary tract infection and dysuria. Patient was subsequently admitted to [facility]. She was found to be in atrial fibrillation and severe systolic dysfunction ejection fraction 25-30%. She was offered ischemia workup and cardiac catheterization. She declined to undergo further testing. At that point she was started on rate control regimen and apixaban 5 mg daily. Patient was discharged on 24/11 from [facility] with advised to take Entresto 2426 mg 1 tablet twice daily furosemide 20 mg daily carvedilol 25 mg 2 tablets twice daily. Her other medications were stopped she was also prescribed apixaban 5 mg twice daily insulin metformin. Patient was given Jardiance however the prescription was never filled. Patient has apparently confusion about what medications to take. She was admitted last night with acute confusion, atrial fibrillation with a rapid ventricular rate. IV diltiazem drip was initiated and rate was controlled. This morning patient is alert oriented with improved mentation. She was able to answer my questions. She denies any chest pains shortness of breath while resting in bed. No history of fever chills any dysuria nausea vomiting or diaphoresis. No history of diarrhea. No recent weight loss or weight gain. Meds Home Medications and Allergies Home Medications ?Medication ?Instructions ?Recorded ?Confirmed ?Type apixaban 5 mg tablet (Eliquis) 5 mg PO BID 02/13/25 02/13/25 History blood sugar diagnostic (True 02/13/25 02/13/25 History Metrix Glucose Test Strip) carvedilol 25 mg tablet 50 mg PO BID 02/13/25 02/13/25 History chlorthalidone 25 mg tablet 25 mg PO DAILY 02/13/25 02/13/25 History cyclobenzaprine 10 mg tablet 10 mg PO 3XD 02/13/25 02/13/25 History estradiol 0.01% (0.1 mg/gram) 1 g vaginal WEEKLY 02/13/25 02/13/25 History vaginal cream fluticasone propionate 50 1 spray intranasal BID 02/13/25 02/13/25 History mcg/actuation nasal spray,suspension furosemide 20 mg tablet 20 mg PO DAILY 02/13/25 02/13/25 History gabapentin 100 mg capsule 100 mg PO 3XD 02/13/25 02/13/25 History hydroxyzine HCl 25 mg tablet 25 mg PO Q6H PRN anxiety 02/13/25 02/13/25 History insulin glargine 100 unit/mL (3 35 unit SUBCUT BID 02/13/25 02/13/25 History mL) subcutaneous pen (Lantus Solostar U-100 Insulin) levothyroxine 125 mcg tablet 125 mcg PO DAILY 02/13/25 02/13/25 History lisinopril 40 mg tablet 40 mg PO DAILY 02/13/25 02/13/25 History metformin 500 mg tablet,extended 1,000 mg PO BID 02/13/25 02/13/25 History release 24 hr ondansetron 4 mg disintegrating 4 mg PO 3XD PRN nausea/vomiting 02/13/25 02/13/25 History tablet pantoprazole 20 mg tablet,delayed 20 mg PO DAILY 02/13/25 02/13/25 History release paroxetine HCl 10 mg tablet 10 mg PO DAILY 02/13/25 02/13/25 History paroxetine HCl 40 mg tablet 40 mg PO DAILY 02/13/25 02/13/25 History potassium chloride 10 mEq 10 meq PO DAILY 02/13/25 02/13/25 History tablet,extended release sacubitril 24 mg-valsartan 26 mg 1 tab PO BID 02/13/25 02/13/25 History tablet (Entresto) vibegron 75 mg tablet (Gemtesa) 75 mg PO DAILY 02/13/25 02/13/25 History Allergies Allergy/AdvReac Type Severity Reaction Status Date / Time No Known Drug Allergies Allergy Verified 02/12/25 17:00 Review of Systems ENT Ears, Nose, Mouth, and Throat: Yes disequilibrium Cardiovascular Cardiovascular: Reports pedal edema, Reports edema and Reports dyspnea on exertion Respiratory Respiratory: Reports dyspnea on exertion Neurologic Neurologic: Reports paresthesias and Reports disequilibrium Exam Vital Signs (past 8 hours): - 02/13/25 03:30 02/13/25 03:34 02/13/25 03:34 Temperature Pulse Rate 126 H 115 H Respiratory Rate 24 9 L Blood Pressure 122/78 Pulse Oximetry 97 Oxygen Delivery Method 02/13/25 04:00 02/13/25 04:00 02/13/25 04:30 Temperature Pulse Rate 101 H 103 H Respiratory Rate 15 16 Blood Pressure 132/87 Pulse Oximetry 93 91 Oxygen Delivery Method 02/13/25 04:30 02/13/25 05:00 02/13/25 05:00 Temperature Pulse Rate 106 H Respiratory Rate 18 Blood Pressure 127/85 128/87 Pulse Oximetry 89 L Oxygen Delivery Method 02/13/25 05:30 02/13/25 05:30 02/13/25 06:00 Temperature Pulse Rate 108 H 104 H Respiratory Rate 15 26 H Blood Pressure 129/90 Pulse Oximetry 90 L 89 L Oxygen Delivery Method 02/13/25 06:00 02/13/25 06:30 02/13/25 06:30 Temperature Pulse Rate 96 H Respiratory Rate 22 Blood Pressure 129/97 H 152/87 H Pulse Oximetry 89 L Oxygen Delivery Method 02/13/25 07:00 02/13/25 07:01 02/13/25 07:01 Temperature Pulse Rate 97 H 83 Respiratory Rate Blood Pressure 129/68 Pulse Oximetry 93 94 Oxygen Delivery Method 02/13/25 07:30 02/13/25 08:00 02/13/25 08:00 Temperature Pulse Rate 101 H 109 H Respiratory Rate 19 Blood Pressure 130/89 Pulse Oximetry 95 Oxygen Delivery Method 02/13/25 08:30 02/13/25 08:44 02/13/25 09:00 Temperature Pulse Rate 112 H 109 H Respiratory Rate 35 H 16 Blood Pressure Pulse Oximetry 96 95 Oxygen Delivery Method Room Air 02/13/25 09:00 02/13/25 09:30 02/13/25 10:00 Temperature 97.4 F L Pulse Rate 89 Respiratory Rate 14 Blood Pressure 108/74 Pulse Oximetry 95 Oxygen Delivery Method 02/13/25 10:29 02/13/25 10:30 02/13/25 10:37 Temperature Pulse Rate 96 H 91 H 78 Respiratory Rate 23 16 21 Blood Pressure Pulse Oximetry 96 98 98 Oxygen Delivery Method 02/13/25 10:37 Temperature Pulse Rate Respiratory Rate Blood Pressure 92/57 L Pulse Oximetry Oxygen Delivery Method Oxygen Delivery Method Room Air Oxygen Flow Rate 0 Const General: cooperative and well developed Orientation: alert, awake and oriented x3 Other: Pallor Eyes General: appearance normal, both eyes and all related structures Neck Neck: normal visual inspection Resp Effort & Inspection: normal respiratory effort Auscultation: clear to auscultation bilaterally Cardio Palpation: normal PMI Rhythm: abnormal rhythm Heart Sounds: S1 normal and S2 normal Other: Leg swelling, skin rash, Back/Spine/Pelvis Back: normal to inspection Skin General: dry skin, erythema, excoriation and pallor Lesions: lesion noted Neuro General: patient alert, patient awake and patient oriented x3 Objective Labs 02/14/25 06:40 02/14/25 06:40 Labs: Laboratory Results - last 24 hr 02/12/25 02/12/25 02/12/25 17:03 17:10 22:27 WBC 7.9 RBC 3.61 L Hgb 10.7 L Hct 33.0 L MCV 91.2 MCH 29.6 MCHC 32.4 RDW 17.4 H Plt Count 237 Neut % (Auto) 72.1 Lymph % (Auto) 15.3 L [place] % (Auto) 10.5 Eos % (Auto) 1.5 L Baso % (Auto) 0.6 Neut # (Auto) 5700 Lymph # (Auto) 1200 [place] # (Auto) 800 Eos # (Auto) 100 Baso # (Auto) 100 Sodium 137 Potassium 4.6 Chloride 108 H Carbon Dioxide 21 L BUN 40 H Creatinine 1.43 H Estimated GFR 40 L BUN/Creatinine Ratio 28.0 H Glucose 192 H POC Whole Bld Glucose 189 H Calcium 8.5 Magnesium 1.1 L Total Bilirubin 0.5 AST 58 H ALT 134 H Alkaline Phosphatase 111 Ammonia Troponin I 0.069 H 0.079 H NT-Pro-B Natriuret Pep 79065 H Total Protein 6.0 L Albumin 3.1 L Globulin 2.9 Albumin/Globulin Ratio 1.1 Lipase 16 L TSH Urine Color Urine Appearance Urine pH Ur Specific [place] Urine Protein Urine Glucose (UA) Urine Ketones Urine Occult Blood Urine Nitrate Urine Bilirubin Urine Urobilinogen Ur Leukocyte Esterase Urine RBC Urine WBC Ur Squamous Epith Cells Urine Bacteria Ur Culture Indicated? Vol Urine Centrifuged Nasal Screen MRSA (PCR) U Opiates 300ng/mL cut Ur Oxycodone Screen Urine Methadone Screen Ur Barbiturates Screen U Tricyclic Antidepress Ur Phencyclidine Scrn Ur Amphetamines Screen U Methamphetamines Scrn Ur MDMA Scrn (Ecstasy) U Benzodiazepines Scrn Urine Cocaine Screen U Marijuana (THC) Screen Urine Specific [place] Ethyl Alcohol Ur Creatinine 02/13/25 02/13/25 02/13/25 00:12 00:15 01:45 WBC RBC Hgb Hct MCV MCH MCHC RDW Plt Count Neut % (Auto) Lymph % (Auto) [place] % (Auto) Eos % (Auto) Baso % (Auto) Neut # (Auto) Lymph # (Auto) [place] # (Auto) Eos # (Auto) Baso # (Auto) Sodium Potassium Chloride Carbon Dioxide BUN Creatinine Estimated GFR BUN/Creatinine Ratio Glucose POC Whole Bld Glucose Calcium Magnesium Total Bilirubin AST ALT Alkaline Phosphatase Ammonia < 9 L Troponin I NT-Pro-B Natriuret Pep Total Protein Albumin Globulin Albumin/Globulin Ratio Lipase TSH Urine Color Yellow Urine Appearance Clear Urine pH 5.5 Ur Specific [place] 1.010 Urine Protein Negative Urine Glucose (UA) Negative Urine Ketones Negative Urine Occult Blood Negative Urine Nitrate Negative Urine Bilirubin Negative Urine Urobilinogen 0.2 Ur Leukocyte Esterase 1+ H Urine RBC None seen Urine WBC 0-1/hpf Ur Squamous Epith Cells 0-1 /hpf Urine Bacteria Few (2-10) H Ur Culture Indicated? Specimen cultured Vol Urine Centrifuged 10ml (spun) Nasal Screen MRSA (PCR) Not detected U Opiates 300ng/mL cut Negative Ur Oxycodone Screen Negative Urine Methadone Screen Negative Ur Barbiturates Screen Negative U Tricyclic Antidepress Positive H Ur Phencyclidine Scrn Negative Ur Amphetamines Screen Negative U Methamphetamines Scrn Negative Ur MDMA Scrn (Ecstasy) Negative U Benzodiazepines Scrn Negative Urine Cocaine Screen Negative U Marijuana (THC) Screen Positive H Urine Specific [place] Ethyl Alcohol < 10 Ur Creatinine 02/13/25 02/13/25 02/13/25 01:45 04:20 08:51 WBC 6.1 RBC 3.38 L Hgb 9.9 L Hct 30.5 L MCV 90.3 MCH 29.4 MCHC 32.6 RDW 17.1 H Plt Count 211 Neut % (Auto) 53.7 Lymph % (Auto) 29.1 [place] % (Auto) 12.3 Eos % (Auto) 4.1 H Baso % (Auto) 0.8 Neut # (Auto) 3300 Lymph # (Auto) 1800 [place] # (Auto) 700 Eos # (Auto) 200 Baso # (Auto) 0 Sodium 137 Potassium 4.0 Chloride 107 Carbon Dioxide 21 L BUN 40 H Creatinine 1.44 H Estimated GFR 40 L BUN/Creatinine Ratio 27.8 H Glucose 113 H POC Whole Bld Glucose 119 H Calcium 8.5 Magnesium Total Bilirubin AST ALT Alkaline Phosphatase Ammonia Troponin I NT-Pro-B Natriuret Pep Total Protein Albumin Globulin Albumin/Globulin Ratio Lipase TSH 1.86 Urine Color Urine Appearance Urine pH Normal Ur Specific [place] Urine Protein Urine Glucose (UA) Urine Ketones Urine Occult Blood Urine Nitrate Urine Bilirubin Urine Urobilinogen Ur Leukocyte Esterase Urine RBC Urine WBC Ur Squamous Epith Cells Urine Bacteria Ur Culture Indicated? Vol Urine Centrifuged Nasal Screen MRSA (PCR) U Opiates 300ng/mL cut Ur Oxycodone Screen Urine Methadone Screen Ur Barbiturates Screen U Tricyclic Antidepress Ur Phencyclidine Scrn Ur Amphetamines Screen U Methamphetamines Scrn Ur MDMA Scrn (Ecstasy) U Benzodiazepines Scrn Urine Cocaine Screen U Marijuana (THC) Screen Urine Specific [place] Normal Ethyl Alcohol Ur Creatinine Normal [facility] Medical History Anxiety Hypertension Type 2 diabetes mellitus Chronic constipation Hypothyroidism (acquired) Chronic atrial fibrillation Congestive heart failure Social History household members: significant other Tobacco & Substance Use Smoking Status: Never smoker Diet and Exercise Type(s) of exercise: none Assessment & Plan Assessment and plan (1) Acute exacerbation of chronic heart failure: Status: Acute Plan 68-year-old female with history of type 2 diabetes hypertension acute systolic heart failure, tachycardia induced cardiomyopathy?, hypothyroidism, peripheral neuropathy, admitted to the hospital for atrial fibrillation with rapid ventricular rate. Elevated BNP and troponin levels most likely not consistent with acute coronary syndrome. Patient was appropriately rate controlled and anticoagulated clinically stable at this point The patient was prescribed Entresto and beta blockers and apixaban I am concerned whether she would be compliant with his medications. Please feel free to give me a call should you have any questions. I appreciate the opportunity participate in the care of your patient. Stop chlorthalidone Torsemide 40 mg daily Stop Lasix Carvedilol 25 twice daily Entresto 81570 tablet twice daily Please do not give lisinopril with Entresto risk of adverse reaction Pantoprazole 20 mg daily Paroxetine 40 mg daily Potassium chloride 10 mg daily Metformin 1000 mg b.i.d. Vibegron 75mg PO daily Apixaban 5 mg twice daily Cyclobenzaprine 10 mg 3 times daily Estradiol 1 g for topical application Fluticasone 1 spray twice daily Patient can be discharged home Take medications as outlined above Strict input-output charting Avoidance of salt rich foods Diabetic diet This patient will benefit from counseling for both medication and diet Follow-up in the office for management of atrial fibrillation. Strongly recommend to continue with carvedilol and apixaban to prevent stroke risk. Her CHADS-VASc score is more than 4 Stroke risk of 4.8%. RestingHR goal below 85bpm and activity HR goal less than 110bpm Pt is not a candidate for cardioversion due to non compliance with medication and recurrent paroxsymal or persistent atrial fibrillation. Assessment & Plan narrative: not ready for discharge Time-Based Coding :: [TOTAL MINUTES] 70 min spent with patient and on the chart (including review of chart, obtaining history, exam, reviewing outside data, placing orders, documenting exam and treatment plan, and counseling patient) on [DATE].
[2025-02-13] MEDS: INSULIN LISPRO 100 UNIT/ML 3ML VIAL SUBCUT ×3 (12:36→20:40)
[2025-02-13] MEDS: POTASSIUM CHLORIDE 10 MEQ TAB PO (12:37)
[2025-02-13] MEDS: PANTOPRAZOLE DR 20 MG TABLET PO (12:38)
[2025-02-13] MEDS: GABAPENTIN 100 MG CAPSULE PO ×2 (15:35→20:38)
--- NOTE | 2025-02-13 16:17 | PT.IIE ---
Medical History (Last Reviewed 02/12/25 @ 23:39 by Jade Siddiqi MD) Anxiety Chronic atrial fibrillation Chronic constipation Congestive heart failure Hypertension Hypothyroidism (acquired) Type 2 diabetes mellitus Physical Therapy Inpatient Evaluation/Re-Eval M1 PT/OT-IP Prior Functional Status Start: 02/13/25 17:08 Freq: NEEDED Status: Active Protocol: Document 02/13/25 16:17 AB (Rec: 02/13/25 17:18 AB [id number]) Medical Review Prior Functional Status Medical History Yes Reviewed Communication able to make needs known but with memory issues and needs time to respond to questions Mobility and Gait pt stated that she was independent with all mobilities and ambulation without AD but with h/o falls; stated that she already had 2 falls for the past 2 weeks and had prior falls before that Social History Household Members significant other Living Arrangements House Number of Floors ( One Floor Floors) Number of Stairs To 3 steps R rail ascending to enter the house Enter/Railing? Home Environment Standard Height Toilet,Tub/Shower Home Equipment Front Wheel Walker,Shower Seat without Backrest Additional Social pt stated that her BF just retired in order to take History Comment care of her; stated that her BF got her 2 FWW to use at home M2 PT-IP Current Condition Start: 02/13/25 17:08 Freq: NEEDED Status: Active Protocol: Document 02/13/25 16:17 AB (Rec: 02/13/25 17:18 AB [id number]) Physical Therapy Current Condition Current Condition Evaluation Date 02/13/25 Treatment Diagnosis A-fib; CHF; difficulty in walkiing Onset Date 02/12/25 M3 PT-IP Subjective Start: 02/13/25 17:08 Freq: NEEDED Status: Active Protocol: Document 02/13/25 16:17 AB (Rec: 02/13/25 17:18 AB [id number]) Subjective Physical Therapy Visit Type Type Initial Evaluation Visit Start Time 16:17 Visit Stop Time 16:45 Number of VERTICAL PUNCH OPERATOR Visits 0 Physical Therapy Visit Comments Patient Comments able to make needs known M4 PT-IP Mobility and Gait Start: 02/13/25 17:08 Freq: NEEDED Status: Active Protocol: Document 02/13/25 16:17 AB (Rec: 02/13/25 17:18 AB [id number]) PT-Bed Mobility Assessment Supine to Sit Supine to Sit Standby Assistance Sit to Supine Sit to Supine Standby Assistance PT-Transfer Assessment Sit to and From Stand Sit to and from Contact Guard Assistance,1 Person Assistance,Use of Stand Upper Extremities Equipment Transfer Assistive Gait Belt,Front Wheeled Walker Device Orthotic/Prosthetic No Devices or Brace: Comments Mobility Comments pt in bed and needed encouragement to participate. agreed to do PT but limited participation. obtained PLOF and home set up. completed supine to sit SBA. able to sit on EOB CGA. sit to stand CGA and cues. pt with confusion and decrease safety awareness affecting mobility independence. pt ambulated in room ~ 20 ft using FWW CGA and cues. presents with antalgic gait. pt wants to go back to bed. refused further mobility. sit to supine SBA. positioned pt in bed. call light and table placed within reach. Gait Assessment Gait Gait Assistance Contact Guard Assist Required: Distance (Feet) 20 Able to Maintain Yes Weight Bearing Status During Gait Assistive Devices Assistive Device Gait Belt,Front Wheeled Walker Orthotic/Prosthetic No Devices or Brace: Gait Deviations General Gait Pattern Decreased Stride Length,Decreased Feet Clearance,Step- to Gait Factors Limiting Gait Function Factors Limiting Decreased Activity Tolerance,Decreased Strength, Gait Function Difficulty Following Directions,Poor Balance,Poor Safety Awareness PT-Balance Assessment Sitting Balance and Reactions Static Sitting Good Balance Ability Dynamic Sitting Good Balance Ability Standing Balance and Reactions Static Standing Fair Balance Ability Dynamic Standing Fair Balance Ability Device Used FWW M5 PT-IP Objective Assessments Start: 02/13/25 17:08 Freq: NEEDED Status: Active Protocol: Document 02/13/25 16:17 AB (Rec: 02/13/25 17:18 AB [id number]) Orientation Orientation/Cognition Level of Alertness Confusional State Orientation Name,Day of Week,Situation Safety Awareness Decreased Safety Awareness Memory Description Short Term Impaired,Motor Transport Inspector Impaired Gross Range of Motion Lower Extremity ROM Assessment Within Functional Limits Strength Lower Extremity Strength Assessment Within Functional Limits Muscle Tone Muscle Tone WNL Yes M6 PT-IP Treatment Start: 02/13/25 17:08 Freq: NEEDED Status: Active Protocol: Document 02/13/25 16:17 AB (Rec: 02/13/25 17:18 AB [id number]) Physical Therapy Treatment Education Education Provided Safety M7 PT-IP Assessment and Plan Start: 02/13/25 17:08 Freq: NEEDED Status: Active Protocol: Document 02/13/25 16:17 AB (Rec: 02/13/25 17:18 AB [id number]) PT Summary Assessment and Plan Potential Rehabilitation Fair Potential Status of Condition Stable at Evaluation Summary Impairments Pain,ROM,Strength,Balance,Coordination,Sensation,Tone, Cognition,Bed Mobility,Transfers,Gait,Activity Tolerance Assessment Summary pt is a 69 y/o F who is admitted for A-fib. pt requiring CGA with ambulation using FWW but with unsteady gait. pt needed encouragement to participate. pt with confusion and decrease safety awareness affecting mobility independence. pt with h/o falls at home and continues to be a fall risk due to pt's decrease safety awareness. pt lives with BF who pt stated just retired so that he can take care of her. pt will require 24/7 assist at this time and will benefit from HHPT. Goals Bed Mobility Goal Independent Transfer Goal Independent,Front Wheeled Walker Gait Goal Independent,Front Wheel Walker Gait Distance 150 Other Goals up/down 3 steps R rail ascending SBA Days to Meet Goals 10 Frequency of Treatment Frequency Of Once a Day Treatment Treatment Plan Physical Therapy Bed Mobility Training,Transfer Training,Gait Training, Treatment Plan Therapeutic Exercise,Balance Retraining,Discharge Planning,Hot or Cold Pack,Neuromuscular Re-ed, Coordination Retraining Precautions Other Precautions falls Recommendations To Nursing Amount of Assist 1 Person Assist Needed Discharge Recommendations PT Discharge Home with 24/7 Assist Available,Home Health Recommendations Transportation Needs Private Vehicle at Discharge - PT assist 1
--- NOTE | 2025-02-13 16:23 | CM.DANOTE ---
B DCP Assessment note Pt is a 69yo F here with afib with RVR. was on drip, no controlled with PO meds. here with some confusion/weakness. PT pending. per Provider, anticipate dc tomorrow with boyfriend. per chart, pt lives with boyfriend in [place]. no PCP listed. no DME at baseline but has had some falls at home recently. has been ambulating with nursing. PT doing eval during attempted assessment. r/o need for HH (med management RN and PT). would need to be Sig HH if no PCP- BARRIER=pt's [employer] MCR. P: anticipate dc home with partner Ramin support pending medical stability/therapy recs. likely could benefit from HH if agreeable- barriers=no PCP/ins. Will continue to follow closely for DCP Coordination RHIANNON Stoddard Discharge Planning/Care Management CM Discharge Assessment Start: 02/12/25 23:06 Freq: Status: Active Protocol: Document 02/13/25 16:20 (Rec: 02/13/25 16:21 [id number]) Discharge Planning Assessment Assigned Discharge RHIANNON Bowens Agricultural Equipment Sales Engineer Provider none listed Insurance [employer] MCR DPOA/Assigned Ramin partner Designee Name Contact Information [phone] Advance Directives? No History Provided By Patient Prior Living House Arrangements Household Members significant other Needs Assistance Managing Medications With Discharge Plan Home Transportation partner Arrangement Additional Comment r/o need for HH Review Status In Process Please Provide Date 02/13/25 Initial DC Assessment Was Performed Next Review Type Continued Stay Review
[2025-02-13] MEDS: SODIUM CHLORIDE 0.9% FLUSH 10 ML IV (20:39)
[2025-02-13] MEDS: FLUTICASONE 120 SPRAY/16 GM SPRAY.SUSP NASAL (20:39)
[2025-02-13] MEDS: INSULIN GLARGINE 100 UNIT/ML 3ML PEN 35 UNIT SUBCUT (20:40)
[2025-02-13] MEDS: CYCLOBENZAPRINE 10 MG TABLET PO (22:01)
[2025-02-14] VITALS (54 sets, daily range): BP systolic 111–160; BP diastolic 75–107; PULSE 102–131; RESP 8–36; TEMP 35.8–36.4; O2SAT 93–97
[2025-02-14] MEDS: LEVOTHYROXINE 125 MCG TABLET PO (06:37)
[2025-02-14] MEDS: FUROSEMIDE 40 MG/4 ML VIAL IV ×3 (06:37→21:08)
[2025-02-14 06:51] LABS: Hematocrit 30.2 % (36-46); Hemoglobin 9.9 g/dL (12.0-16.0); Mean Corpuscular HGB Conc 32.8 % (30-36); Mean Corpuscular Hemoglobin 29.0 PG (26-34); Mean Corpuscular Volume 88.3 fL (80-100); Platelet Count 209 X10^3/uL (150-400)
[2025-02-14 07:08] LABS: Blood Urea Nitrogen 38 mg/dL (7-17); Calcium 8.6 mg/dL (8.4-10.2); Carbon Dioxide 24 mmol/L (22-32); Chloride 104 mmol/L (98-107); Estimated Glomerular Filt Rate 36 mL/min (>60); Glucose 106 mg/dL (70-99); HEMOLYSIS < 15 (0-50); Potassium 3.5 mmol/L (3.4-5.1); Sodium 137 mmol/L (137-145)
--- NOTE | 2025-02-14 09:49 | P.PN_ITS ---
Subjective Subjective Date Patient Seen: 02/14/25 Time Patient Seen: 09:49 Interval history: This is a 69-year-old female with known history paroxysmal atrial fibrillation hypothyroidism type 2 diabetes 3-4yrs recurrent urinary tract infections hypertension anxiety class 2 obesity body mass index of 35.60 admitted to the hospital with acute confusion. Patient was in atrial fibrillation with rapid ventricular rate. Patient has had multiple hospital admissions brisk visit by recent urinary tract infection and dysuria. Patient was subsequently admitted to [facility]. She was found to be in atrial fibrillation and severe systolic dysfunction ejection fraction 25-30%. She was offered ischemia workup and cardiac catheterization. She declined to undergo further testing. At that point she was started on rate control regimen and apixaban 5 mg daily. Interval history : Patient is diuresing well and has put out 2 L of fluids. She is breathing better, lower extremity swelling swelling is improved. Heart rate still in the 90s to 110. Exam Vital Signs (past 8 hours): - 02/14/25 02:00 02/14/25 02:00 02/14/25 02:30 Temperature Pulse Rate 115 H 113 H Respiratory Rate Blood Pressure 130/93 H Pulse Oximetry 02/14/25 03:00 02/14/25 03:00 02/14/25 03:30 Temperature Pulse Rate 113 H 114 H Respiratory Rate Blood Pressure 140/100 H Pulse Oximetry 02/14/25 04:00 02/14/25 04:00 02/14/25 04:30 Temperature Pulse Rate 109 H 113 H Respiratory Rate Blood Pressure 127/96 H Pulse Oximetry 02/14/25 05:00 02/14/25 05:00 02/14/25 05:05 Temperature Pulse Rate 116 H 117 H Respiratory Rate 22 Blood Pressure 153/106 H Pulse Oximetry 02/14/25 05:05 02/14/25 05:30 02/14/25 06:00 Temperature Pulse Rate 109 H 118 H Respiratory Rate 35 H 32 H Blood Pressure 122/95 H Pulse Oximetry 02/14/25 06:00 02/14/25 06:02 02/14/25 06:02 Temperature Pulse Rate 115 H Respiratory Rate 26 H Blood Pressure 160/107 H 152/96 H Pulse Oximetry 02/14/25 06:30 02/14/25 07:00 02/14/25 07:01 Temperature 97.3 F L Pulse Rate 116 H 114 H Respiratory Rate 30 H 30 H Blood Pressure 111/75 Pulse Oximetry 97 02/14/25 07:01 02/14/25 07:30 02/14/25 07:51 Temperature Pulse Rate 121 H 114 H Respiratory Rate 35 H 27 H Blood Pressure 117/92 H Pulse Oximetry 02/14/25 07:51 02/14/25 08:00 02/14/25 08:00 Temperature 96.5 F L Pulse Rate 102 H 114 H Respiratory Rate 27 H 30 H Blood Pressure Pulse Oximetry 93 02/14/25 08:30 02/14/25 09:00 Temperature Pulse Rate 121 H 120 H Respiratory Rate 27 H 25 H Blood Pressure Pulse Oximetry Oxygen Delivery Method Room Air Oxygen Flow Rate 0 Const General: cooperative and healthy appearing Other: Today is her HENMT Face and sinus: normal facial exam Eyes General: appearance normal, both eyes and all related structures Neck Neck: normal visual inspection Chest Chest: normal inspection of the chest Resp Auscultation: clear to auscultation bilaterally Cardio Rate: other Rhythm: abnormal rhythm Back/Spine/Pelvis Back: normal to inspection Skin General: scars Objective Labs 02/14/25 06:40 02/14/25 06:40 Labs: Laboratory Results - last 24 hr 02/13/25 02/13/25 02/13/25 11:46 16:57 20:22 WBC RBC Hgb Hct MCV MCH MCHC RDW Plt Count Sodium Potassium Chloride Carbon Dioxide BUN Creatinine Estimated GFR BUN/Creatinine Ratio Glucose POC Whole Bld Glucose 154 H 184 H 261 H Calcium 02/14/25 02/14/25 02/14/25 05:19 06:40 07:51 WBC 5.8 RBC 3.41 L Hgb 9.9 L Hct 30.2 L MCV 88.3 MCH 29.0 MCHC 32.8 RDW 16.6 H Plt Count 209 Sodium 137 Potassium 3.5 Chloride 104 Carbon Dioxide 24 BUN 38 H Creatinine 1.55 H Estimated GFR 36 L BUN/Creatinine Ratio 24.5 H Glucose 106 H POC Whole Bld Glucose 108 H D 113 H Calcium 8.6 PFSH Medical History Anxiety Hypertension Type 2 diabetes mellitus Chronic constipation Hypothyroidism (acquired) Chronic atrial fibrillation Congestive heart failure Social History household members: significant other Smoking Status: Never smoker Type(s) of exercise: none Assessment & Plan Assessment and plan (1) Atrial fibrillation with rapid ventricular response: Status: Acute Assessment & Plan narrative: Stop Hydroxzine Start Amiodarone 100mg PO daily for it BB effect. Continue diuresis. Follow up tomorrow. Time-Based Coding :: [TOTAL MINUTES] spent with patient and on the chart (including review of chart, obtaining history, exam, reviewing outside data, placing orders, documenting exam and treatment plan, and counseling patient) on [DATE]. Quality VTE Deep Vein Thrombosis/Pulmonary Embolism Present on Admission: No
--- NOTE | 2025-02-14 10:27 | OT.IP.EVAL ---
Current Diagnoses Unspecified atrial fibrillation (02/12/25) Heart failure, unspecified (02/12/25) Past Medical History (Last Reviewed 02/14/25 @ 09:52 by Hi Velázquez MD) Anxiety Chronic atrial fibrillation Chronic constipation Congestive heart failure Hypertension Hypothyroidism (acquired) Type 2 diabetes mellitus Occupational Therapy Inpatient Evaluation/Re-Eval M1 PT/OT-IP Prior Functional Status Start: 02/13/25 17:08 Freq: NEEDED Status: Active Protocol: Document 02/14/25 10:09 [facility] (Rec: 02/14/25 10:27 [facility] Desktop) Medical Review Prior Functional Status Medical History Yes Reviewed Communication able to make needs known but with memory issues and needs time to respond to questions Mobility and Gait pt stated that she was independent with all mobilities and ambulation without AD but with h/o falls; stated that she already had 2 falls for the past 2 weeks and had prior falls before that Activities of Daily Pt states having more difficulty with ADL and IADL Living and IADL's needs and her BF was assisting her. Social History Household Members significant other Living Arrangements House Number of Floors ( One Floor Floors) Number of Stairs To 3 steps R rail ascending to enter the house Enter/Railing? Home Environment Standard Height Toilet,Tub/Shower Home Equipment Front Wheel Walker,Shower Seat without Backrest Additional Social pt stated that her BF just retired in order to take History Comment care of her; stated that her BF got her 2 FWW to use at home. Pt has suction cup grab bar. M2 OT-IP Current Condition Start: 02/14/25 10:08 Freq: Status: Active Protocol: Document 02/14/25 10:09 [facility] (Rec: 02/14/25 10:27 [facility] Desktop) Occupational Therapy Current Condition Current Condition Evaluation Date 02/14/25 Treatment Diagnosis A-fib. CHF Diagnosis Onset Date 02/14/25 M3 OT- IP Subjective and Pain Start: 02/14/25 10:08 Freq: Status: Active Protocol: Document 02/14/25 10:09 [facility] (Rec: 02/14/25 10:27 [facility] Desktop) OT- Subjective Occupational Therapy Visit Type Type Initial Evaluation Visit Start Time 08:55 Visit Stop Time 09:20 Occupational Therapy Visit Comments Patient Comments Pt agreed to get up to use the bathroom and do oral care and grooming needs at the sink. Patient/Caregiver TO go home. Goals OT Pain Assessment Pain When Pain Assessed At Rest Pain Present Pain Present Denied Pain M4 OT- IP ADL's Start: 02/14/25 10:08 Freq: Status: Active Protocol: Document 02/14/25 10:09 [facility] (Rec: 02/14/25 10:27 [facility] Desktop) OT [id number] General Evaluation Self-Feeding Ability Standby Assistance Areas Needing Opening Containers Assistance OT ADL-Grooming General Evaluation Grooming Ability Standby Assistance Areas Needing Retrieving/Set-up of Grooming Items Assistance Comments OT Grooming Comments Able to do while standing with FWW. OT ADL-Oral Care General Eval Oral Care Ability Standby Assistance Areas of Assistance Retrieving/Set-Up of Items Comments Oral Care Comments Set-up to open items. OT ADL-Dressing General Eval Lower Body Dressing Minimal Assistance Ability Areas Needing Underpants/Brief Assistance Comments OT Dressing Comments Assist to get the brief over her feet. OT ADL-Toileting General Evaluation Toileting Ability Minimal Assistance Areas Needing Manage Clothing Assistance Comments OT Toileting Pt educated to wipe from front to back. Pt may benefit Comments from bidet or toilet paper aid as pt states usually wipe from back to front. OT ADL-Bathing Comments OT Bathing Comments Pt may benefit tub bench, solid grab bar, and HHSP. M5 OT- IP IADL's Start: 02/14/25 10:08 Freq: Status: Active Protocol: Document 02/14/25 10:09 [facility] (Rec: 02/14/25 10:27 [facility] Desktop) OT-Instrumental Activities of Daily Living Home Safety Awareness Awareness of Need Good Awareness for Assistance at Home Ability to Problem Able to Problem Solve Solve Emergency Situations Home Safety Comments Pt able to answer all home situation accurately. Medication Management Medication Caregiver Provides Supervision Management Money Management Money Management Caregiver Provides Assistance Meal Preparation Meal Preparation Caregiver Provides Assist Rolling Machine Tender Rolling Machine Tender Caregiver Provides Assist Driving Driving Comments Pt aware not safe to drive at this time and that her boyfriend drives her. M6 OT- IP Functional Cognition Start: 02/14/25 10:08 Freq: Status: Active Protocol: Document 02/14/25 10:09 [facility] (Rec: 02/14/25 10:27 [facility] Desktop) Cognitive Factors Limiting Selfcare Function Cognitive Ability Level of Alertness Alert Patient Orientation Name,Age,Birthday,Month,Date,Year,Day of Week,Place, Situation Attention Span Capable of Focused Attention,Capable of Sustained Ability Attention Ability to Follow Able to Follow One Step Commands Commands Memory Description Short Term Impaired Safety Awareness Underestimates Need for Assistance Cognitive Tests SLUMS Initiated SLUMS and pt having difficulty and not able to calculate 100-23 and only able to recall 1/5 words after time passed and then pt getting frustrated and wanting to stop the assessment. Pt is well aware that her boyfriend will have to assist her more with needs. Try to do SLUMS again tomorrow. Cognitive Comments Cognitive Assessment Pt needing MAX vc for safety awareness for FWW use, to Comments take off her brief while seated, to turn all the way around prior to sitting down on the toilet. OT- Vision and Hearing OT- Hearing Assessment OT- Hearing WFL Assessment OT- Vision Assessment Visual Acuity WFL Visual Attentiveness WFL Occular Pursuits WFL M7 OT- IP Mobility and Balance Start: 02/14/25 10:08 Freq: Status: Active Protocol: Document 02/14/25 10:09 [facility] (Rec: 02/14/25 10:27 [facility] Desktop) OT- Bed Mobility Assessment Supine to Sit Supine to Sit Assist Standby Assistance Sit to Supine Sit to Supine Assist Contact Guard Assistance OT-Transfer Assessment Sit to and From Stand Sit to and from Contact Guard Assistance Stand Transfers Transfer Ability Standby Assistance,Contact Guard Assistance Technique Transfer Destination Bed,Chair,Toilet Transfer Technique Stand Step Pivot Devices Transfer Assistive None,Front Wheeled Walker Devices Comments Mobility Comments CGA to help get her LLE back into bed. CLose SBA to CGA as at times pt letting go of the FWW. VC to keep the FWW in front of her at all times. OT- Balance Assessment Sitting Balance and Reactions Static Sitting Normal Balance Ability Dynamic Sitting Good Balance Ability Standing Balance and Reactions Static Standing Good Balance Ability Dynamic Standing Fair Balance Ability M8 OT- IP Objective Assessments Start: 02/14/25 10:08 Freq: Status: Active Protocol: Document 02/14/25 10:09 [facility] (Rec: 02/14/25 10:27 [facility] Desktop) OT Gross Range of Motion Upper Extremity Range of Motion Assessment Within Functional Limits OT Strength Comments Strength Comments BUE 4/5 to 4-/5 from proximal to distal. M9 OT- IP Assessment and Plan Start: 02/14/25 10:08 Freq: Status: Active Protocol: Document 02/14/25 10:09 [facility] (Rec: 02/14/25 10:27 [facility] Desktop) OT Summary Assessment and Plan Potential Rehabilitation Good Potential Analytic Complexity Moderate at Evaluation Summary OT Impairments Strength,Balance,Functional Cognition,Functional Mobility,Dressing,Toileting,Bathing,Toilet Transfers, Shower Transfers,Activity Tolerance Progress Towards Progressing Toward Goals,Slow Progress due to Medical Goals Issues Assessment Summary Pt MOD complexity and main barriers are decreased safety awareness and dynamic standing balance. Initiated SLUMS however pt not doing well and getting frustrated and therefore assessment stopped. Pt was having difficulty with STM and calculations. Pt states her boyfriend has been assist her more at home recently and is supportive. Once medically stable, pt will benefit from home with 24/7 available assist and home ollie. Goals Self-Feeding Goal Independent Grooming Goal Independent Dressing Goal Standby Assistance Toileting Goal Standby Assistance Bathing Goal Standby Assistance Toilet Transfer Goal Independent Shower Transfer Goal Standby Assistance Days to Meet Goals 5 Frequency of Treatment Other frequency 5x/week Treatment Plan OT Treatment Plan ADL Training,Functional Cognition Training,Functional Mobility,Patient/Family Education,Discharge Planning Other Treatment SLUMS, shower Recommendations and Next Treatment Focus Discharge Recommendations OT Discharge Home with 24/7 Assist Available,Home Health Recommendations Home Equipment Needs tub bench, BSC, grab bar, HHSP Transportation Needs Private Vehicle at Discharge
[2025-02-14] MEDS: AMIODARONE 200 MG TABLET 100 MG PO (10:34)
[2025-02-14] MEDS: POTASSIUM CHLORIDE 10 MEQ TAB PO (10:34)
[2025-02-14] MEDS: PANTOPRAZOLE DR 20 MG TABLET PO (10:35)
[2025-02-14] MEDS: APIXABAN 5 MG TABLET PO ×2 (10:35→21:08)
[2025-02-14] MEDS: GABAPENTIN 100 MG CAPSULE PO ×3 (10:35→21:08)
[2025-02-14] MEDS: CYCLOBENZAPRINE 10 MG TABLET PO ×3 (10:35→21:08)
[2025-02-14] MEDS: SODIUM CHLORIDE 0.9% FLUSH 10 ML IV ×2 (10:37→21:09)
[2025-02-14] MEDS: POTASSIUM CHLORIDE 20 MEQ TAB PO (10:37)
[2025-02-14] MEDS: INSULIN GLARGINE 100 UNIT/ML 3ML PEN 35 UNIT SUBCUT ×2 (10:38→21:22)
--- NOTE | 2025-02-14 11:15 | PT.IPTN ---
Current Diagnoses Unspecified atrial fibrillation (02/14/25) Heart failure, unspecified (02/14/25) Physical Therapy Treatment Note M2 PT-IP Current Condition Start: 02/13/25 17:08 Freq: NEEDED Status: Active Protocol: Document 02/13/25 16:17 AB (Rec: 02/13/25 17:18 AB [id number]) Physical Therapy Current Condition Current Condition Evaluation Date 02/13/25 Treatment Diagnosis A-fib; CHF; difficulty in walkiing Onset Date 02/12/25 M3 PT-IP Subjective Start: 02/13/25 17:08 Freq: NEEDED Status: Active Protocol: Document 02/14/25 11:15 AB (Rec: 02/14/25 12:41 AB [id number]) Subjective Physical Therapy Visit Type Type Treatment Note Visit Start Time 11:15 Visit Stop Time 11:30 Number of VP Visits 0 Physical Therapy Visit Comments Patient Comments agreed to get up M4 PT-IP Mobility and Gait Start: 02/13/25 17:08 Freq: NEEDED Status: Active Protocol: Document 02/14/25 11:15 AB (Rec: 02/14/25 12:41 AB [id number]) PT-Bed Mobility Assessment Supine to Sit Supine to Sit Standby Assistance PT-Transfer Assessment Sit to and From Stand Sit to and from Standby Assistance,1 Person Assistance,Use of Upper Stand Extremities Equipment Transfer Assistive Gait Belt,Front Wheeled Walker Device Orthotic/Prosthetic No Devices or Brace: Transfers Transfer Destination Chair Transfer Technique ambulated Transfer Ability Level of Assist Contact Guard Assistance,1 Person Assistance,Use of Upper Extremities Comments Mobility Comments pt in bed and needed encouragement to do PT. agreed to get up. supine to sit SBA. OR: 121-126. sit to stand CGA and ambulated ~ 20 ft using FWW CGA. refused further ambulation but agreed to sit up on the chair. positioned pt on the chair. call light and table placed within reach. Gait Assessment Gait Gait Assistance Contact Guard Assist Required: Distance (Feet) 20 Able to Maintain Yes Weight Bearing Status During Gait Assistive Devices Assistive Device Gait Belt,Front Wheeled Walker Gait Deviations General Gait Pattern Decreased Stride Length,Decreased Feet Clearance Factors Limiting Gait Function Factors Limiting Decreased Activity Tolerance,Decreased Strength,Poor Gait Function Balance,Poor Safety Awareness M5 PT-IP Objective Assessments Start: 02/13/25 17:08 Freq: NEEDED Status: Active Protocol: Document 02/13/25 16:17 AB (Rec: 02/13/25 17:18 AB [id number]) Orientation Orientation/Cognition Level of Alertness Confusional State Orientation Name,Day of Week,Situation Safety Awareness Decreased Safety Awareness Memory Description Short Term Impaired,Nursing Home Impaired Gross Range of Motion Lower Extremity ROM Assessment Within Functional Limits Strength Lower Extremity Strength Assessment Within Functional Limits Muscle Tone Muscle Tone WNL Yes M6 PT-IP Treatment Start: 02/13/25 17:08 Freq: NEEDED Status: Active Protocol: Document 02/14/25 11:15 AB (Rec: 02/14/25 12:41 AB [id number]) Physical Therapy Treatment Education Education Provided Safety M7 PT-IP Assessment and Plan Start: 02/13/25 17:08 Freq: NEEDED Status: Active Protocol: Document 02/14/25 11:15 AB (Rec: 02/14/25 12:41 AB [id number]) PT Summary Assessment and Plan Potential Rehabilitation Fair Potential Summary Impairments Strength,Balance,Coordination,Sensation,Tone,Cognition, Bed Mobility,Transfers,Gait,Activity Tolerance Progress Towards Slow Progress due to Medical Issues,Slow Progress due Goals to Activity Tolerance Assessment Summary pt requiring CGA with mobility using fWW and cues for safety. pt continues to have decrease activity tolerance affecting mobility independence. pt plans to go home and will have her significant other assist her. pt will also benefit from HHPT. Goals Bed Mobility Goal Independent Transfer Goal Independent,Front Wheeled Walker Gait Goal Independent,Front Wheel Walker Gait Distance 150 Other Goals up/down 3 steps R rail ascending SBA Days to Meet Goals 10 Frequency of Treatment Frequency Of Once a Day Treatment Treatment Plan Physical Therapy Bed Mobility Training,Transfer Training,Gait Training, Treatment Plan Therapeutic Exercise,Balance Retraining,Discharge Planning,Hot or Cold Pack,Neuromuscular Re-ed, Coordination Retraining Precautions Other Precautions falls Recommendations To Nursing Amount of Assist 1 Person Assist Needed Discharge Recommendations PT Discharge Home with 28/12 Assist Available,Home Health Recommendations Transportation Needs Private Vehicle at Discharge - PT assist 1
[2025-02-14] MEDS: INSULIN LISPRO 100 UNIT/ML 3ML VIAL SUBCUT (12:47)
--- NOTE | 2025-02-14 13:46 | CM.DPNOTE ---
DCP Cont Discussed HH referral with patient and she agrees- no agency preference. Referral sent to [facility] for review. Patient lives in [place] and has [employer] M[employer]- hopefully [facility] can accept. If not, will attempt [facility]. Patient is eager to discharge home w/bf Ramin to transport. Today is patient's birthday. According to Dr Damian, Cardiology has not yet cleared her for return home. Referral emailed to Ovidio at [facility]; including face sheet, H+P, HH Order and F2F. SW team following, send DC Summary to [facility] when available- that is, if [facility] accepts. JOHN
--- NOTE | 2025-02-14 19:08 | P.PN_ITS ---
Subjective Subjective Date Patient Seen: 02/14/25 Interval history: Chief complaint: Congestive heart failure secondary to atrial fibrillation rapid ventricular response with metabolic encephalopathy and fatigue History of present illness: 02/12: 69-year-old female with past medical history of atrial fibrillation on Eliquis, severe chronic systolic heart failure with an EF of 25%, hypertension, anxiety and diabetes presents with generalized weakness and possible confusion. Per report the patient's boyfriend who she lives with called EMS because of possible increased confusion. It was reported that the patient was not oriented to place and was complaining of mild abdominal pain. In addition it is unclear if the patient has been compliant with her medication which include Lasix, Eliquis, metoprolol and Synthroid. The patient also was recently hospitalized at [facility] with similar complaints of confusion and abdominal pain. The patient then did have atrial fibrillation with RVR. However during my interview the patient was oriented to place person and time. The patient denies any fever, chills, nausea, vomiting, diarrhea, chest pain or shortness of breath. In the emergency room, the patient was hemodynamically stable but was in A-fib with RVR. Labs were relatively benign except for creatinine 1.4 glucose of 192 troponin 0.06 and BNP of 18,900. AST mildly elevated at [address] of the head shows no acute finding and x-ray of the abdomen shows only mild stool without signs of small bowel obstruction. Chest x-ray however did not show obvious signs of pulmonary edema. The patient was given IV Lasix 80 mg as well as diltiazem drip was initiated. Dr. Velázquez from cardiology was consulted and a request for admission for ongoing management of A-fib with RVR. Hospital course: 02/13-02/14: Patient diuresing with torsemide however rate is still above 100 she has severe systolic dysfunction ejection fraction 25-30% but declined ischemia workup and cardiac catheterization patient is feeling better but is still having heart rate above 100 Review of systems: No fever or chills No chest pain No wheezing No nausea vomiting diarrhea Physical exam: Sleeping but arousable no acute distress No labored respirations on room air Heart irregularly irregular rhythm Lungs are diminished breath sounds Extremities to 3+ edema of the ankles Alert nonfocal neurologic exam Assessment and plan: Acute on chronic systolic congestive heart failure with rate related diastolic dysfunction secondary to AFib and rapid ventricular response * Continue diuresis with torsemide * Continue toward rate control * Appreciate cardiology expertise * Continue anticoagulation Chronic medical conditions: * Anxiety * Hypertension * Type 2 diabetes mellitus * Chronic constipation * Hypothyroidism (acquired) DVT prophylaxis: * Covered with Eliquis Code status: * Full code blue Disposition: * Still has not rate control and this is part of her congestive heart failure least another 24 hours hospitalization for management adjustment of her cardiac arrhythmia with adjusting her pharmacologic regimen Time based billin minutes were involved in management of the care of this patient including [id number] evaluation direct physical examination discussion with Cardiology review of objective laboratory EKG and imaging studies discussion with care management Exam Vital Signs (past 8 hours): - 02/14/25 11:30 02/14/25 11:53 02/14/25 11:53 Temperature Pulse Rate 126 H 122 H Respiratory Rate 32 H 25 H Blood Pressure 130/83 Pulse Oximetry 95 02/14/25 12:00 02/14/25 12:00 02/14/25 12:30 Temperature 97.6 F Pulse Rate 122 H 123 H Respiratory Rate 24 21 Blood Pressure Pulse Oximetry 95 02/14/25 13:00 02/14/25 13:30 02/14/25 14:00 Temperature Pulse Rate 122 H 116 H 121 H Respiratory Rate 25 H 18 16 Blood Pressure Pulse Oximetry Oxygen Delivery Method Room Air Oxygen Flow Rate 0 Objective Labs 02/14/25 06:40 02/14/25 06:40 Labs: Laboratory Results - last 24 hr 02/13/25 02/14/25 02/14/25 20:22 05:19 06:40 WBC 5.8 RBC 3.41 L Hgb 9.9 L Hct 30.2 L MCV 88.3 MCH 29.0 MCHC 32.8 RDW 16.6 H Plt Count 209 Sodium 137 Potassium 3.5 Chloride 104 Carbon Dioxide 24 BUN 38 H Creatinine 1.55 H Estimated GFR 36 L BUN/Creatinine Ratio 24.5 H Glucose 106 H POC Whole Bld Glucose 261 H 108 H D Calcium 8.6 02/14/25 02/14/25 02/14/25 07:51 11:53 17:07 WBC RBC Hgb Hct MCV MCH MCHC RDW Plt Count Sodium Potassium Chloride Carbon Dioxide BUN Creatinine Estimated GFR BUN/Creatinine Ratio Glucose POC Whole Bld Glucose 113 H 182 H 128 H Calcium PFSH Medical History Anxiety Hypertension Type 2 diabetes mellitus Chronic constipation Hypothyroidism (acquired) Chronic atrial fibrillation Congestive heart failure Social History household members: significant other Smoking Status: Never smoker Type(s) of exercise: none Assessment & Plan Time-Based Coding :: [TOTAL MINUTES] spent with patient and on the chart (including review of chart, obtaining history, exam, reviewing outside data, placing orders, documenting exam and treatment plan, and counseling patient) on [DATE]. Quality VTE Deep Vein Thrombosis/Pulmonary Embolism Present on Admission: No
--- NOTE | 2025-02-14 20:59 | PC.NURSE ---
Addendum entered by Ayde Ch RN 02/15/25 07:22: 0722 Report given to barb RAMIREZ. Plan of care discussed. Addendum entered by Ayde Ch RN 02/15/25 07:09: 0650 MD aware of patient potassium level. MD to place orders. Original Note: 1929 Report received from barb RAMIREZ. Patient ambulating from restroom back to bed. Patient AAO x's 4, forgetful. Able to BALLESTEROS. BLE weak against resistance. Denies pain, numbness or tingling. Call light within reach and bed in lowest position.
[2025-02-14] MEDS: FLUTICASONE 120 SPRAY/16 GM SPRAY.SUSP NASAL (21:22)
[2025-02-15] VITALS (67 sets, daily range): BP systolic 93–157; BP diastolic 60–101; PULSE 76–135; RESP 13–40; TEMP 36.1–36.5; O2SAT 82–98
[2025-02-15 05:01] LABS: Hematocrit 32.8 % (36-46); Hemoglobin 10.7 g/dL (12.0-16.0); Mean Corpuscular HGB Conc 32.5 % (30-36); Mean Corpuscular Hemoglobin 28.9 PG (26-34); Mean Corpuscular Volume 88.9 fL (80-100); Platelet Count 232 X10^3/uL (150-400)
[2025-02-15 05:18] LABS: Blood Urea Nitrogen 40 mg/dL (7-17); Calcium 8.7 mg/dL (8.4-10.2); Carbon Dioxide 28 mmol/L (22-32); Chloride 100 mmol/L (98-107); Estimated Glomerular Filt Rate 34 mL/min (>60); Glucose 77 mg/dL (70-99); HEMOLYSIS < 15 (0-50); Potassium 3.1 mmol/L (3.4-5.1); Sodium 137 mmol/L (137-145)
[2025-02-15] MEDS: LEVOTHYROXINE 125 MCG TABLET PO (06:23)
[2025-02-15] MEDS: FUROSEMIDE 40 MG/4 ML VIAL IV ×2 (06:23→14:14)
[2025-02-15] MEDS: POTASSIUM CHLORIDE 20 MEQ/15 ML UDC 40 MEQ PO (07:06)
[2025-02-15] MEDS: FLUTICASONE 120 SPRAY/16 GM SPRAY.SUSP NASAL ×2 (09:14→20:51)
[2025-02-15] MEDS: PANTOPRAZOLE DR 20 MG TABLET PO (09:15)
[2025-02-15] MEDS: POTASSIUM CHLORIDE 10 MEQ TAB PO (09:15)
[2025-02-15] MEDS: GABAPENTIN 100 MG CAPSULE PO ×3 (09:15→20:50)
[2025-02-15] MEDS: AMIODARONE 200 MG TABLET 100 MG PO ×2 (09:15→11:14)
[2025-02-15] MEDS: APIXABAN 5 MG TABLET PO ×2 (09:15→20:50)
[2025-02-15] MEDS: CYCLOBENZAPRINE 10 MG TABLET PO ×3 (09:15→20:50)
[2025-02-15] MEDS: INSULIN GLARGINE 100 UNIT/ML 3ML PEN 17 UNIT SUBCUT (09:16)
[2025-02-15] MEDS: SODIUM CHLORIDE 0.9% FLUSH 10 ML IV ×2 (09:30→20:52)
--- NOTE | 2025-02-15 11:13 | OT.IP.TRT ---
Current Diagnoses Unspecified atrial fibrillation (02/14/25) Heart failure, unspecified (02/14/25) Occupational Therapy Treatment Note M2 OT-IP Current Condition Start: 02/14/25 10:08 Freq: Status: Active Protocol: Document 02/14/25 10:09 [facility] (Rec: 02/14/25 10:27 [facility] Desktop) Occupational Therapy Current Condition Current Condition Evaluation Date 02/14/25 Treatment Diagnosis A-fib. CHF Diagnosis Onset Date 02/14/25 M3 OT- IP Subjective and Pain Start: 02/14/25 10:08 Freq: Status: Active Protocol: Document 02/15/25 11:14 [facility] (Rec: 02/15/25 11:22 [facility] Desktop) OT- Subjective Occupational Therapy Visit Type Type Treatment Note Visit Start Time 10:50 Visit Stop Time 11:13 Occupational Therapy Visit Comments Patient Comments Pt initially not wanting to get up and then able to talk about trial of 4ww which may be helpful for ADL needs at home. Patient/Caregiver TO go home. Goals OT Pain Assessment Pain When Pain Assessed At Rest Pain Present Pain Present Denied Pain M4 OT- IP ADL's Start: 02/14/25 10:08 Freq: Status: Active Protocol: Document 02/14/25 10:09 [facility] (Rec: 02/14/25 10:27 [facility] Desktop) OT [id number] General Evaluation Self-Feeding Ability Standby Assistance Areas Needing Opening Containers Assistance OT ADL-Grooming General Evaluation Grooming Ability Standby Assistance Areas Needing Retrieving/Set-up of Grooming Items Assistance Comments OT Grooming Comments Able to do while standing with FWW. OT ADL-Oral Care General Eval Oral Care Ability Standby Assistance Areas of Assistance Retrieving/Set-Up of Items Comments Oral Care Comments Set-up to open items. OT ADL-Dressing General Eval Lower Body Dressing Minimal Assistance Ability Areas Needing Underpants/Brief Assistance Comments OT Dressing Comments Assist to get the brief over her feet. OT ADL-Toileting General Evaluation Toileting Ability Minimal Assistance Areas Needing Manage Clothing Assistance Comments OT Toileting Pt educated to wipe from front to back. Pt may benefit Comments from bidet or toilet paper aid as pt states usually wipe from back to front. OT ADL-Bathing Comments OT Bathing Comments Pt may benefit tub bench, solid grab bar, and HHSP. M5 OT- IP IADL's Start: 02/14/25 10:08 Freq: Status: Active Protocol: Document 02/14/25 10:09 [facility] (Rec: 02/14/25 10:27 [facility] Desktop) OT-Instrumental Activities of Daily Living Home Safety Awareness Awareness of Need Good Awareness for Assistance at Home Ability to Problem Able to Problem Solve Solve Emergency Situations Home Safety Comments Pt able to answer all home situation accurately. Medication Management Medication Caregiver Provides Supervision Management Money Management Money Management Caregiver Provides Assistance Meal Preparation Meal Preparation Caregiver Provides Assist Computer Security Manager Computer Security Manager Caregiver Provides Assist Driving Driving Comments Pt aware not safe to drive at this time and that her boyfriend drives her. M6 OT- IP Functional Cognition Start: 02/14/25 10:08 Freq: Status: Active Protocol: Document 02/15/25 11:14 [facility] (Rec: 02/15/25 11:22 [facility] Desktop) Cognitive Factors Limiting Selfcare Function Cognitive Ability Level of Alertness Alert Patient Orientation Name,Age,Birthday,Month,Date,Year,Day of Week,Place, Situation Attention Span Capable of Focused Attention,Capable of Sustained Ability Attention Ability to Follow Able to Follow One Step Commands Commands Cognitive Tests SLUMS Pt states not wanting to do SLUMS today and states she just is not up for it and aware not at her baseline yet . Cognitive Comments Cognitive Assessment Pt still needing vc for safety awareness to back up all Comments the way to the recliner prior to sitting down. IN addition to reach back to the surfaces prior to sitting and standing up. M7 OT- IP Mobility and Balance Start: 02/14/25 10:08 Freq: Status: Active Protocol: Document 02/15/25 11:14 [facility] (Rec: 02/15/25 11:22 [facility] Desktop) OT- Bed Mobility Assessment Supine to Sit Supine to Sit Assist Standby Assistance Sit to Supine Sit to Supine Assist Standby Assistance Scooting Scooting to Edge of Moderate Assistance Bed OT-Transfer Assessment Sit to and From Stand Sit to and from Contact Guard Assistance Stand Transfers Transfer Ability Standby Assistance,Contact Guard Assistance Technique Transfer Destination Bed,Chair Transfer Technique Stand Step Pivot Devices Transfer Assistive None,4 Wheeled Walker Devices Comments Mobility Comments Pt able to get into and out of the bed with increased time. CGA /SBA to stand and MODA to help scoot her hips forwards in the bed. Pt able to practice use of 4ww and would be beneficial for home especially for ADL needs and to sit and rest when needed. Pt up on her feet and HR from 125-131. Pt back in bed and bed alarm turned on. OT- Balance Assessment Sitting Balance and Reactions Static Sitting Normal Balance Ability Dynamic Sitting Good Balance Ability Standing Balance and Reactions Static Standing Good Balance Ability Dynamic Standing Fair Balance Ability M8 OT- IP Objective Assessments Start: 02/14/25 10:08 Freq: Status: Active Protocol: Document 02/14/25 10:09 [facility] (Rec: 02/14/25 10:27 [facility] Desktop) OT Gross Range of Motion Upper Extremity Range of Motion Assessment Within Functional Limits OT Strength Comments Strength Comments BUE 4/5 to 4-/5 from proximal to distal. M9 OT- IP Assessment and Plan Start: 02/14/25 10:08 Freq: Status: Active Protocol: Document 02/15/25 11:14 [facility] (Rec: 02/15/25 11:22 [facility] Desktop) OT Summary Assessment and Plan Potential Rehabilitation Good Potential Analytic Complexity Moderate at Evaluation Summary OT Impairments Strength,Balance,Functional Cognition,Functional Mobility,Dressing,Toileting,Bathing,Toilet Transfers, Shower Transfers,Activity Tolerance Progress Towards Progressing Toward Goals,Slow Progress due to Medical Goals Issues Assessment Summary Pt not wanting to retry the SLUMS at this time. Pt able to try 4ww and able to use with CGA to close SBA. Pt would benefit from 4ww for ADL needs. When medically stable, pt to go home with 24/7 assist and benefit from home health. Goals Self-Feeding Goal Independent Grooming Goal Independent Dressing Goal Independent Toileting Goal Standby Assistance Bathing Goal Standby Assistance Toilet Transfer Goal Independent Shower Transfer Goal Standby Assistance Days to Meet Goals 5 Frequency of Treatment Other frequency 5x/week Treatment Plan OT Treatment Plan ADL Training,Functional Cognition Training,Functional Mobility,Patient/Family Education,Discharge Planning Other Treatment SLUMS, shower Recommendations and Next Treatment Focus Discharge Recommendations OT Discharge Home with 24/7 Assist Available,Home Health Recommendations Home Equipment Needs tub bench, BSC, grab bar, HHSP, 4ww Transportation Needs Private Vehicle at Discharge
--- NOTE | 2025-02-15 12:00 | CM.DPNOTE ---
DCP note per RN, pt afib remains not controlled today, pending half sole fitter input but unlikely will dc today. per Ovidio at [facility], cannot accept pt due to insurance. per Aby at [facility], likely to accept. final acceptance pending. CERTIFIED RETINAL ANGIOGRAPHER updated on pt not likely discharging today. P: anticipate dc home when medically stable with SO support and HH to follow, will continue to follow closely for DCP coordination Gogo Vera, RHIANNON
--- NOTE | 2025-02-15 12:14 | PT.IPTN ---
Current Diagnoses Unspecified atrial fibrillation (02/14/25) Heart failure, unspecified (02/14/25) Physical Therapy Treatment Note M2 PT-IP Current Condition Start: 02/13/25 17:08 Freq: NEEDED Status: Active Protocol: Document 02/13/25 16:17 AB (Rec: 02/13/25 17:18 AB [id number]) Physical Therapy Current Condition Current Condition Evaluation Date 02/13/25 Treatment Diagnosis A-fib; CHF; difficulty in walkiing Onset Date 02/12/25 M3 PT-IP Subjective Start: 02/13/25 17:08 Freq: NEEDED Status: Active Protocol: Document 02/15/25 12:09 KJ (Rec: 02/15/25 12:14 KJ [id number]) Subjective Physical Therapy Visit Type Type Treatment Note Visit Start Time 11:31 Visit Stop Time 11:46 Physical Therapy Visit Comments Patient Comments Pt reluctant to get up and move. Agrees to participate with encouragement. Patient Goals To go home. M4 PT-IP Mobility and Gait Start: 02/13/25 17:08 Freq: NEEDED Status: Active Protocol: Document 02/15/25 12:09 KJ (Rec: 02/15/25 12:14 KJ [id number]) PT-Bed Mobility Assessment Rolling Type of Rolling Roll to Left Level of Assist Contact Guard Assistance Supine to Sit Supine to Sit Contact Guard Assistance Scooting Scooting to Edge of Minimal Assistance Bed PT-Transfer Assessment Sit to and From Stand Sit to and from Contact Guard Assistance Stand Equipment Transfer Assistive Gait Belt,Front Wheeled Walker Device Transfers Transfer Destination Chair Transfer Technique Stand Step Pivot Transfer Ability Level of Assist Contact Guard Assistance PT-Balance Assessment Sitting Balance and Reactions Static Sitting Good Balance Ability Dynamic Sitting Good Balance Ability Standing Balance and Reactions Static Standing Good Balance Ability Dynamic Standing Good Balance Ability M5 PT-IP Objective Assessments Start: 02/13/25 17:08 Freq: NEEDED Status: Active Protocol: Document 02/15/25 12:09 KJ (Rec: 02/15/25 12:14 KJ [id number]) Orientation Orientation/Cognition Level of Alertness Alert Orientation Name,Age,Birthday,Month,Date,Year,Day of Week,Place, Situation Safety Awareness Understands Safety Issues Memory Description No Deficits Noted M6 PT-IP Treatment Start: 02/13/25 17:08 Freq: NEEDED Status: Active Protocol: Document 02/15/25 12:09 KJ (Rec: 02/15/25 12:14 KJ [id number]) Physical Therapy Treatment Exercises Exercises Ankle Pumps Education Education Provided Safety Other Treatments Other Treatment Educated pt on importance of sitting up in chair for Performed meals. Educated pt on importance of mobility. M7 PT-IP Assessment and Plan Start: 02/13/25 17:08 Freq: NEEDED Status: Active Protocol: Document 02/15/25 12:09 KJ (Rec: 02/15/25 12:14 KJ [id number]) PT Summary Assessment and Plan Potential Rehabilitation Good Potential Status of Condition Evolving at Evaluation Summary Impairments Activity Tolerance Assessment Summary pt needs encouragement for mobility Treatment Plan Physical Therapy Gait Training Treatment Plan
[2025-02-15] MEDS: INSULIN LISPRO 100 UNIT/ML 3ML VIAL SUBCUT ×2 (12:16→17:08)
--- NOTE | 2025-02-15 14:05 | PM.PN.1 ---
Subjective Subjective Date Patient Seen: 02/15/25 Time Patient Seen: 14:06 Interval history: This is a 69-year-old female with known history paroxysmal atrial fibrillation hypothyroidism type 2 diabetes 3-4yrs recurrent urinary tract infections hypertension anxiety class 2 obesity body mass index of 35.60 admitted to the hospital with acute confusion. Patient was in atrial fibrillation with rapid ventricular rate. Patient has had multiple hospital admissions brisk visit by recent urinary tract infection and dysuria. Patient was subsequently admitted to [facility]. She was found to be in atrial fibrillation and severe systolic dysfunction ejection fraction 25-30%. She was offered ischemia workup and cardiac catheterization. I received a phone call for increased heart rate this morning. I am here to see her patient is without any respiratory distress she is sitting comfortably in the chair. No chest pains dizziness presyncope or syncope reported. She reports that she has more energy than before. And she has not experiencing any heart palpitations at this point. Exam Vital Signs (past 8 hours): - 02/15/25 07:00 02/15/25 07:07 02/15/25 07:07 Temperature Pulse Rate 127 H 127 H Respiratory Rate 17 24 Blood Pressure 157/87 H Pulse Oximetry 94 93 Oxygen Delivery Method Oxygen Flow Rate 02/15/25 07:30 02/15/25 08:00 02/15/25 08:00 Temperature 97 F L Pulse Rate 121 H 128 H Respiratory Rate 24 17 Blood Pressure Pulse Oximetry 94 94 Oxygen Delivery Method Oxygen Flow Rate 02/15/25 08:30 02/15/25 09:00 02/15/25 09:00 Temperature Pulse Rate 131 H 124 H Respiratory Rate 18 23 Blood Pressure Pulse Oximetry 96 94 Oxygen Delivery Method Room Air Oxygen Flow Rate 02/15/25 10:00 02/15/25 11:00 02/15/25 12:00 Temperature Pulse Rate 127 H 134 H 132 H Respiratory Rate 20 18 13 Blood Pressure Pulse Oximetry 94 95 95 Oxygen Delivery Method Oxygen Flow Rate 02/15/25 12:19 02/15/25 12:21 02/15/25 12:21 Temperature Pulse Rate 135 H 133 H Respiratory Rate 23 30 H Blood Pressure 128/69 Pulse Oximetry 95 97 Oxygen Delivery Method Oxygen Flow Rate 02/15/25 12:22 02/15/25 12:30 02/15/25 13:00 Temperature 97.7 F Pulse Rate 134 H 132 H 125 H Respiratory Rate 18 21 Blood Pressure 128/69 Pulse Oximetry 95 95 95 Oxygen Delivery Method Oxygen Flow Rate 0 Oxygen Delivery Method Room Air Oxygen Flow Rate 0 Const General: cooperative and healthy appearing Orientation: alert, awake and oriented x3 HENMT Head: normal to inspection Eyes General: appearance normal, both eyes and all related structures Neck Neck: normal visual inspection Chest Chest: normal inspection of the chest Resp Effort & Inspection: normal respiratory effort and able to speak in complete sentences Auscultation: clear to auscultation bilaterally Cardio Palpation: normal PMI Rate: tachycardic Rhythm: abnormal rhythm GI Inspection: normal to inspection Back/Spine/Pelvis Back: normal to inspection Skin General: no rashes or lesions noted Objective Labs 02/15/25 04:15 02/15/25 04:15 Labs: Laboratory Results - last 24 hr 02/14/25 02/14/25 02/15/25 17:07 21:21 04:15 WBC 6.5 RBC 3.69 L Hgb 10.7 L Hct 32.8 L MCV 88.9 MCH 28.9 MCHC 32.5 RDW 16.7 H Plt Count 232 Sodium 137 Potassium 3.1 L Chloride 100 Carbon Dioxide 28 BUN 40 H Creatinine 1.63 H Estimated GFR 34 L BUN/Creatinine Ratio 24.5 H Glucose 77 POC Whole Bld Glucose 128 H 151 H Calcium 8.7 02/15/25 02/15/25 02/15/25 08:20 09:06 12:09 WBC RBC Hgb Hct MCV MCH MCHC RDW Plt Count Sodium Potassium Chloride Carbon Dioxide BUN Creatinine Estimated GFR BUN/Creatinine Ratio Glucose POC Whole Bld Glucose 63 L 113 H 179 H Calcium PFSH Medical History Anxiety Hypertension Type 2 diabetes mellitus Chronic constipation Hypothyroidism (acquired) Chronic atrial fibrillation Congestive heart failure Social History household members: significant other Smoking Status: Never smoker Type(s) of exercise: none Assessment & Plan Assessment & Plan narrative: Increase the dose of amiodarone to 200 mg twice daily Monitor BUN and creatinine Scr 1.67 Lasix 40mg IV 12hrs HR goal below 110bpm Pt has lost 8kg of free fluid since admission. CBC, BMP, BNP. Follow up tomorrow. Time-Based Coding :: [TOTAL MINUTES] spent with patient and on the chart (including review of chart, obtaining history, exam, reviewing outside data, placing orders, documenting exam and treatment plan, and counseling patient) on [DATE]. Quality VTE Deep Vein Thrombosis/Pulmonary Embolism Present on Admission: No
[2025-02-15] MEDS: AMIODARONE 200 MG TABLET PO ×2 (14:14→20:50)
--- NOTE | 2025-02-15 15:24 | P.PN_ITS ---
Subjective Subjective Date Patient Seen: 02/15/25 Interval history: Chief complaint: Congestive heart failure secondary to atrial fibrillation rapid ventricular response with metabolic encephalopathy and fatigue History of present illness: 02/12: 69-year-old female with past medical history of atrial fibrillation on Eliquis, severe chronic systolic heart failure with an EF of 25%, hypertension, anxiety and diabetes presents with generalized weakness and possible confusion. Per report the patient's boyfriend who she lives with called EMS because of possible increased confusion. It was reported that the patient was not oriented to place and was complaining of mild abdominal pain. In addition it is unclear if the patient has been compliant with her medication which include Lasix, Eliquis, metoprolol and Synthroid. The patient also was recently hospitalized at [facility] with similar complaints of confusion and abdominal pain. The patient then did have atrial fibrillation with RVR. However during my interview the patient was oriented to place person and time. The patient denies any fever, chills, nausea, vomiting, diarrhea, chest pain or shortness of breath. In the emergency room, the patient was hemodynamically stable but was in A-fib with RVR. Labs were relatively benign except for creatinine 1.4 glucose of 192 troponin 0.06 and BNP of 18,900. AST mildly elevated at [address] of the head shows no acute finding and x-ray of the abdomen shows only mild stool without signs of small bowel obstruction. Chest x-ray however did not show obvious signs of pulmonary edema. The patient was given IV Lasix 80 mg as well as diltiazem drip was initiated. Dr. Velázquez from cardiology was consulted and a request for admission for ongoing management of A-fib with RVR. Hospital course: 02/13-02/14: Patient diuresing with torsemide however rate is still above 100 she has severe systolic dysfunction ejection fraction 25-30% but declined ischemia workup and cardiac catheterization patient is feeling better but is still having heart rate above 100 Review of systems: No fever or chills No chest pain No wheezing No nausea vomiting diarrhea Physical exam: Sleeping but arousable no acute distress No labored respirations on room air Heart irregularly irregular rhythm Lungs are diminished breath sounds Extremities to 3+ edema of the ankles Alert nonfocal neurologic exam Assessment and plan: Acute on chronic systolic congestive heart failure with rate related diastolic dysfunction secondary to AFib and rapid ventricular response * Heart rate still in the 120s * Continue diuresis with torsemide * Continue toward rate control * Amiodarone 200 mg b.i.d. added * Coreg 50 mg b.i.d. * Appreciate cardiology expertise * Continue anticoagulation Chronic medical conditions: * Anxiety * Hypertension * Type 2 diabetes mellitus * Chronic constipation * Hypothyroidism (acquired) DVT prophylaxis: * Covered with Eliquis Code status: * Full code blue Disposition: * Still has not rate control and this is part of her congestive heart failure least another 24 hours hospitalization for management adjustment of her cardiac arrhythmia with adjusting her pharmacologic regimen Time based billin minutes were involved in management of the care of this patient including [id number] evaluation direct physical examination discussion with Cardiology review of objective laboratory EKG and imaging studies discussion with care management Exam Vital Signs (past 8 hours): - 02/15/25 07:30 02/15/25 08:00 02/15/25 08:00 Temperature 97 F L Pulse Rate 121 H 128 H Respiratory Rate 24 17 Blood Pressure Pulse Oximetry 94 94 Oxygen Delivery Method Oxygen Flow Rate 02/15/25 08:30 02/15/25 09:00 02/15/25 09:00 Temperature Pulse Rate 131 H 124 H Respiratory Rate 18 23 Blood Pressure Pulse Oximetry 96 94 Oxygen Delivery Method Room Air Oxygen Flow Rate 02/15/25 10:00 02/15/25 11:00 02/15/25 12:00 Temperature Pulse Rate 127 H 134 H 132 H Respiratory Rate 20 18 13 Blood Pressure Pulse Oximetry 94 95 95 Oxygen Delivery Method Oxygen Flow Rate 02/15/25 12:19 02/15/25 12:21 02/15/25 12:21 Temperature Pulse Rate 135 H 133 H Respiratory Rate 23 30 H Blood Pressure 128/69 Pulse Oximetry 95 97 Oxygen Delivery Method Oxygen Flow Rate 02/15/25 12:22 02/15/25 12:30 02/15/25 13:00 Temperature 97.7 F Pulse Rate 134 H 132 H 125 H Respiratory Rate 18 21 Blood Pressure 128/69 Pulse Oximetry 95 95 95 Oxygen Delivery Method Oxygen Flow Rate 0 Oxygen Delivery Method Room Air Oxygen Flow Rate 0 Objective Labs 02/15/25 04:15 02/15/25 04:15 Labs: Laboratory Results - last 24 hr 02/14/25 02/14/25 02/15/25 17:07 21:21 04:15 WBC 6.5 RBC 3.69 L Hgb 10.7 L Hct 32.8 L MCV 88.9 MCH 28.9 MCHC 32.5 RDW 16.7 H Plt Count 232 Sodium 137 Potassium 3.1 L Chloride 100 Carbon Dioxide 28 BUN 40 H Creatinine 1.63 H Estimated GFR 34 L BUN/Creatinine Ratio 24.5 H Glucose 77 POC Whole Bld Glucose 128 H 151 H Calcium 8.7 02/15/25 02/15/25 02/15/25 08:20 09:06 12:09 WBC RBC Hgb Hct MCV MCH MCHC RDW Plt Count Sodium Potassium Chloride Carbon Dioxide BUN Creatinine Estimated GFR BUN/Creatinine Ratio Glucose POC Whole Bld Glucose 63 L 113 H 179 H Calcium PFSH Medical History Anxiety Hypertension Type 2 diabetes mellitus Chronic constipation Hypothyroidism (acquired) Chronic atrial fibrillation Congestive heart failure Social History household members: significant other Smoking Status: Never smoker Type(s) of exercise: none Assessment & Plan Time-Based Coding :: [TOTAL MINUTES] spent with patient and on the chart (including review of chart, obtaining history, exam, reviewing outside data, placing orders, documenting exam and treatment plan, and counseling patient) on [DATE]. Quality VTE Deep Vein Thrombosis/Pulmonary Embolism Present on Admission: No
[2025-02-15] MEDS: INSULIN GLARGINE 100 UNIT/ML 3ML PEN 25 UNIT SUBCUT (22:10)
[2025-02-16] VITALS (47 sets, daily range): BP systolic 94–145; BP diastolic 63–90; PULSE 60–105; RESP 9–40; TEMP 35.7–36.5; O2SAT 89–97
[2025-02-16] MEDS: FUROSEMIDE 40 MG/4 ML VIAL IV ×2 (02:01→12:32)
--- NOTE | 2025-02-16 02:59 | PC.NURSE ---
0300 Patient found with IV dislodged. Band-aid applied and patient cleansed and linens and gown changed. Patient with no complaints at this time. New IV placed to [facility].
[2025-02-16] MEDS: LEVOTHYROXINE 125 MCG TABLET PO (05:08)
[2025-02-16 05:39] LABS: Blood Urea Nitrogen 45 mg/dL (7-17); Calcium 8.5 mg/dL (8.4-10.2); Carbon Dioxide 30 mmol/L (22-32); Chloride 99 mmol/L (98-107); Estimated Glomerular Filt Rate 31 mL/min (>60); Glucose 84 mg/dL (70-99); HEMOLYSIS < 15 (0-50); Potassium 3.1 mmol/L (3.4-5.1); Sodium 137 mmol/L (137-145)
--- NOTE | 2025-02-16 07:56 | P.PN_ITS ---
Subjective Subjective Date Patient Seen: 02/16/25 Interval history: Congestive heart failure secondary to atrial fibrillation rapid ventricular response with metabolic encephalopathy and fatigue History of present illness: 02/12: 69-year-old female with past medical history of atrial fibrillation on Eliquis, severe chronic systolic heart failure with an EF of 25%, hypertension, anxiety and diabetes presents with generalized weakness and possible confusion. Per report the patient's boyfriend who she lives with called EMS because of possible increased confusion. It was reported that the patient was not oriented to place and was complaining of mild abdominal pain. In addition it is unclear if the patient has been compliant with her medication which include Lasix, Eliquis, metoprolol and Synthroid. The patient also was recently hospitalized at [facility] with similar complaints of confusion and abdominal pain. The patient then did have atrial fibrillation with RVR. However during my interview the patient was oriented to place person and time. The patient denies any fever, chills, nausea, vomiting, diarrhea, chest pain or shortness of breath. In the emergency room, the patient was hemodynamically stable but was in A-fib with RVR. Labs were relatively benign except for creatinine 1.4 glucose of 192 troponin 0.06 and BNP of 18,900. AST mildly elevated at [address] of the head shows no acute finding and x-ray of the abdomen shows only mild stool without signs of small bowel obstruction. Chest x-ray however did not show obvious signs of pulmonary edema. The patient was given IV Lasix 80 mg as well as diltiazem drip was initiated. Dr. Velázquez from cardiology was consulted and a request for admission for ongoing management of A-fib with RVR. Hospital course: 02/13-02/14: Patient diuresing with torsemide however rate is still above 100 she has severe systolic dysfunction ejection fraction 25-30% but declined ischemia workup and cardiac catheterization patient is feeling better but is still having heart rate above 100 02/16: Her primary care physician is in [place]. She lives on [facility]. The urine culture is growing Proteus and E coli so she will be started on ceftriaxone. The amiodarone dose has been doubled. She is now off the diltiazem drip that she needed again last night. Her blood sugars have been low so the glargine doses will be decreased. The potassium is 3.1 so she will be given 40 of oral potassium. The creatinine is 1.76. Review of systems: No fever or chills No chest pain No wheezing No nausea vomiting diarrhea Physical exam: Sleeping but arousable no acute distress No labored respirations on room air, CTAB Heart regular rate and rhythm without murmur Extremities no edema of the ankles Alert nonfocal neurologic exam Assessment and plan: Acute on chronic systolic congestive heart failure with rate related diastolic dysfunction secondary to AFib and rapid ventricular response * Heart rate continues to be variable, was on diltiazem last night. * Continue diuresis with torsemide * Continue efforts to maintain rate control * Amiodarone 200 mg b.i.d. added * Coreg 50 mg b.i.d. * Appreciate cardiology expertise * Continue anticoagulation * Potassium supplementation Urinary tract infection * E coli/Proteus growing on urine culture * IV ceftriaxone started on 02/16. Likely related to symptoms of weakness and confusion on initial admission. Chronic medical conditions: * Anxiety * Hypertension * Type 2 diabetes mellitus * Chronic constipation * Hypothyroidism (acquired) DVT prophylaxis: * Covered with Eliquis Code status: * Full code blue Disposition: * Still has not been able to maintain rate control and this is part of her congestive heart failure least another 24 hours hospitalization for management adjustment of her cardiac arrhythmia with adjusting her pharmacologic regimen Exam Vital Signs (past 8 hours): - 02/16/25 00:00 02/16/25 00:00 02/16/25 00:00 Temperature 97.7 F Pulse Rate 77 74 Respiratory Rate 18 9 L Blood Pressure 102/70 110/79 Pulse Oximetry 93 Oxygen Flow Rate 0 02/16/25 00:15 02/16/25 00:15 02/16/25 00:30 Temperature Pulse Rate 75 68 Respiratory Rate 17 Blood Pressure 107/82 Pulse Oximetry 93 Oxygen Flow Rate 02/16/25 00:35 02/16/25 00:35 02/16/25 00:46 Temperature Pulse Rate 71 Respiratory Rate 9 L Blood Pressure 102/70 121/82 Pulse Oximetry 93 Oxygen Flow Rate 02/16/25 00:46 02/16/25 01:00 02/16/25 01:00 Temperature Pulse Rate 70 71 Respiratory Rate 13 20 Blood Pressure 98/66 Pulse Oximetry 93 92 Oxygen Flow Rate 02/16/25 01:15 02/16/25 01:15 02/16/25 01:30 Temperature Pulse Rate 69 74 Respiratory Rate Blood Pressure 104/86 Pulse Oximetry 92 94 Oxygen Flow Rate 02/16/25 02:00 02/16/25 02:01 02/16/25 02:01 Temperature Pulse Rate 74 75 Respiratory Rate 18 19 Blood Pressure 102/64 Pulse Oximetry 96 96 Oxygen Flow Rate 02/16/25 02:30 02/16/25 02:31 02/16/25 02:31 Temperature Pulse Rate 80 80 Respiratory Rate 17 27 H Blood Pressure 117/65 Pulse Oximetry 97 97 Oxygen Flow Rate 02/16/25 03:00 02/16/25 03:00 02/16/25 04:00 Temperature 97.5 F L Pulse Rate 76 72 Respiratory Rate 23 18 Blood Pressure 119/74 104/80 Pulse Oximetry 94 93 Oxygen Flow Rate 0 Oxygen Delivery Method Room Air Oxygen Flow Rate 0 Objective Labs 02/15/25 04:15 02/16/25 05:09 Labs: Laboratory Results - last 24 hr 02/15/25 02/15/25 02/15/25 08:20 09:06 12:09 Sodium Potassium Chloride Carbon Dioxide BUN Creatinine Estimated GFR BUN/Creatinine Ratio Glucose POC Whole Bld Glucose 63 L 113 H 179 H Calcium 02/15/25 02/15/25 02/16/25 17:05 22:06 05:09 Sodium 137 Potassium 3.1 L Chloride 99 Carbon Dioxide 30 BUN 45 H Creatinine 1.76 H Estimated GFR 31 L BUN/Creatinine Ratio 25.6 H Glucose 84 POC Whole Bld Glucose 170 H 159 H Calcium 8.5 02/16/25 07:42 Sodium Potassium Chloride Carbon Dioxide BUN Creatinine Estimated GFR BUN/Creatinine Ratio Glucose POC Whole Bld Glucose 54 L D Calcium PFSH Medical History Anxiety Hypertension Type 2 diabetes mellitus Chronic constipation Hypothyroidism (acquired) Chronic atrial fibrillation Congestive heart failure Social History household members: significant other Smoking Status: Never smoker Type(s) of exercise: none Assessment & Plan Time-Based Coding :: [TOTAL MINUTES] spent with patient and on the chart (including review of chart, obtaining history, exam, reviewing outside data, placing orders, documenting exam and treatment plan, and counseling patient) on [DATE]. Quality VTE Deep Vein Thrombosis/Pulmonary Embolism Present on Admission: No
[2025-02-16] MEDS: GABAPENTIN 100 MG CAPSULE PO ×2 (09:16→20:50)
[2025-02-16] MEDS: AMIODARONE 200 MG TABLET PO ×2 (09:19→20:51)
[2025-02-16] MEDS: APIXABAN 5 MG TABLET PO ×2 (09:19→20:50)
[2025-02-16] MEDS: PANTOPRAZOLE DR 20 MG TABLET PO (09:20)
[2025-02-16] MEDS: POTASSIUM CHLORIDE 10 MEQ TAB PO (09:20)
[2025-02-16] MEDS: CYCLOBENZAPRINE 10 MG TABLET PO ×2 (09:20→20:51)
[2025-02-16] MEDS: SODIUM CHLORIDE 0.9% FLUSH 10 ML IV ×2 (09:37→21:05)
--- NOTE | 2025-02-16 09:52 | PC.NURSE ---
Patient hypoglycemic this morning. Awake and alert and able to take in po. Drank 4 ounces orange juice and given her breakfast tray,which she ate hypoglycemia continued (see glucose checks). Dr. Mc notified. Patient drank 2 additional 4 ounce orange juices. Morning glargine discontinued, pharmacist in to review with patient. Call light within reach. Continue to monitor.
[2025-02-16] MEDS: POTASSIUM CHLORIDE 20 MEQ TAB 40 MEQ PO (10:43)
--- NOTE | 2025-02-16 11:30 | CM.DPNOTE ---
DCP Note per RN, pt required to be back on drip for HR control, has been on and off of it again overnight. low blood sugars. likely no DC today. [employer] updated Aby at [facility] likely no DC today. P: anticipate dc home to [place] with SO when medically stable with [facility] to follow. will continue to follow as needed in case any additional needs should arise RHIANNON Stoddard
[2025-02-16] MEDS: INSULIN LISPRO 100 UNIT/ML 3ML VIAL SUBCUT ×2 (12:27→17:27)
--- NOTE | 2025-02-16 13:03 | OT.IP.TRT ---
Current Diagnoses Unspecified atrial fibrillation (02/14/25) Heart failure, unspecified (02/14/25) Occupational Therapy Treatment Note M2 OT-IP Current Condition Start: 02/14/25 10:08 Freq: Status: Active Protocol: Document 02/16/25 12:50 [facility] (Rec: 02/16/25 13:02 [facility] Desktop) Occupational Therapy Current Condition Current Condition Evaluation Date 02/16/25 Treatment Diagnosis A-fib, CHF, UTI Diagnosis Onset Date 02/12/25 M3 OT- IP Subjective and Pain Start: 02/14/25 10:08 Freq: Status: Active Protocol: Document 02/16/25 12:50 [facility] (Rec: 02/16/25 13:02 [facility] Desktop) OT- Subjective Occupational Therapy Visit Type Type Initial Evaluation Visit Start Time 11:43 Visit Stop Time 12:10 Occupational Therapy Visit Comments Patient Comments Pt needing lots of encouragement to initiate and participate in needs. Patient/Caregiver Pt wanting to go home. Goals OT Pain Assessment Pain When Pain Assessed At Rest Pain Present Pain Present Denied Pain M4 OT- IP ADL's Start: 02/14/25 10:08 Freq: Status: Active Protocol: Document 02/16/25 12:50 [facility] (Rec: 02/16/25 13:02 [facility] Desktop) OT [id number] Comments OT Self-Feeding Not at meal time. Comments OT ADL-Grooming General Evaluation Grooming Ability Minimal Assistance Areas Needing Combing/Brushing Hair Assistance Comments OT Grooming Comments Assist to help detangle the snarls in her hair. OT ADL-Oral Care Comments Oral Care Comments Pt refusing at this time and states to do it after she eats. OT ADL-Dressing General Eval Lower Body Dressing Minimal Assistance Ability Areas Needing Socks Assistance OT ADL-Toileting General Evaluation Toileting Ability Total Assistance Comments OT Toileting Purewick in place. Comments OT ADL-Bathing Comments OT Bathing Comments Pt will benefit from assist. M5 OT- IP IADL's Start: 02/14/25 10:08 Freq: Status: Active Protocol: Document 02/16/25 12:50 [facility] (Rec: 02/16/25 13:02 [facility] Desktop) OT-Instrumental Activities of Daily Living Home Safety Awareness Ability to Problem Unable to Problem Solve Solve Emergency Situations Home Safety Comments Pt is much more groggy and confused today and having with her memory. Pt has a UTI per chart. M6 OT- IP Functional Cognition Start: 02/14/25 10:08 Freq: Status: Active Protocol: Document 02/16/25 12:50 [facility] (Rec: 02/16/25 13:02 [facility] Desktop) Cognitive Factors Limiting Selfcare Function Cognitive Ability Level of Alertness Alert,Confusional State Patient Orientation Name,Age,Birthday,Month,Date,Year,Place,Situation Attention Span Capable of Focused Attention,Capable of Sustained Ability Attention,Unable to Sustain Attention Ability to Follow Able to Follow One Step Commands with Increased Time, Commands Able to Follow One Step Commands with Repetition Memory Description Short Term Impaired,Working Impaired Cognitive Tests SLUMS Pt scored 10/30 which implies dementia, however pt has a UTI which may be also affecting her thinking at this time. TO reassess SLUMS when pt is more medically stable . Cognitive Comments Cognitive Assessment Pt needing vc for safety for FWW and transitions to use Comments her hands to help push up and reach back to surfaces. M7 OT- IP Mobility and Balance Start: 02/14/25 10:08 Freq: Status: Active Protocol: Document 02/16/25 12:50 [facility] (Rec: 02/16/25 13:02 [facility] Desktop) OT- Bed Mobility Assessment Supine to Sit Supine to Sit Assist Standby Assistance Scooting Scooting to Edge of Minimal Assistance Bed OT-Transfer Assessment Sit to and From Stand Sit to and from Contact Guard Assistance Stand Transfers Transfer Ability Contact Guard Assistance Technique Transfer Destination Bed,Chair Transfer Technique Stand Step Pivot Devices Transfer Assistive None,Front Wheeled Walker Devices Comments Mobility Comments Pt refused use of gait belt. CGA for safety as pt a little unsteady on her feet with FWW. OT- Balance Assessment Sitting Balance and Reactions Static Sitting Normal Balance Ability Dynamic Sitting Good Balance Ability Standing Balance and Reactions Static Standing Good Balance Ability Dynamic Standing Fair Balance Ability M8 OT- IP Objective Assessments Start: 02/14/25 10:08 Freq: Status: Active Protocol: Document 02/14/25 10:09 [facility] (Rec: 02/14/25 10:27 [facility] Desktop) OT Gross Range of Motion Upper Extremity Range of Motion Assessment Within Functional Limits OT Strength Comments Strength Comments BUE 4/5 to 4-/5 from proximal to distal. M9 OT- IP Assessment and Plan Start: 02/14/25 10:08 Freq: Status: Active Protocol: Document 02/16/25 12:50 [facility] (Rec: 02/16/25 13:02 [facility] Desktop) OT Summary Assessment and Plan Potential Rehabilitation Good Potential Analytic Complexity Moderate at Evaluation Summary OT Impairments Strength,Balance,Functional Cognition,Functional Mobility,Dressing,Toileting,Bathing,Toilet Transfers, Shower Transfers,Activity Tolerance Progress Towards Slow Progress due to Medical Issues,Slow Progress due Goals to Activity Tolerance,Slow Progress due to Cognition Assessment Summary Pt needing lots of encouragement to participate in ADL' s and transfer today. Pt states just feels tired and not able to think clearly or at times get her words out . Pt scored 10/30 on the SLUMS and good to reassess when medically more clear. When medically stable pt to go home with 24/7 assist and home health vs SNF pending progress and medical needs. Goals Self-Feeding Goal Independent Grooming Goal Independent Dressing Goal Independent Toileting Goal Independent Bathing Goal Standby Assistance Toilet Transfer Goal Independent Shower Transfer Goal Standby Assistance Days to Meet Goals 10 Frequency of Treatment Other frequency 5x/week Treatment Plan OT Treatment Plan ADL Training,Functional Cognition Training,Functional Mobility,Patient/Family Education,Discharge Planning Other Treatment Shower Recommendations and Next Treatment Focus Discharge Recommendations OT Discharge Home with 24/7 Assist Available,Home Health,Home vs SNF Recommendations Home Equipment Needs tub bench, BSC, grab bar, HHSP, 4ww Transportation Needs Private Vehicle,Wheelchair/Cabulance at Discharge
--- NOTE | 2025-02-16 14:16 | PM.PN.1 ---
Subjective Subjective Date Patient Seen: 02/16/25 Time Patient Seen: 14:17 Interval history: This is a 69-year-old female with known history paroxysmal atrial fibrillation hypothyroidism type 2 diabetes, [place] [id number]%3-4yrs recurrent urinary tract infections hypertension anxiety class 2 obesity body mass index of 35.60 admitted to the hospital with acute confusion. Patient is doing better and feeling better her respiratory distress is so much improved. Yesterday I had to put her on the diltiazem drip and she was continued to having atrial fibrillation with high ventricular rate. Since this morning the diltiazem drip was stopped and she has been on amiodarone 200 mg twice daily. She feels well her respiratory distress is so much improved she is feeling better and upon the chair and requesting to be sent home. Exam Vital Signs (past 8 hours): - 02/16/25 07:00 02/16/25 07:15 02/16/25 07:15 Temperature Pulse Rate 69 64 Respiratory Rate 17 15 Blood Pressure 117/85 94/73 Pulse Oximetry 92 91 02/16/25 07:30 02/16/25 07:30 02/16/25 07:45 Temperature Pulse Rate 70 74 Respiratory Rate 15 13 Blood Pressure 140/88 Pulse Oximetry 89 L 90 L 02/16/25 07:45 02/16/25 08:00 02/16/25 08:00 Temperature 96.3 F L Pulse Rate 66 Respiratory Rate 16 Blood Pressure 130/90 Pulse Oximetry 92 02/16/25 08:00 02/16/25 08:15 02/16/25 08:15 Temperature Pulse Rate 72 Respiratory Rate 23 Blood Pressure 136/73 133/85 Pulse Oximetry 92 02/16/25 08:30 02/16/25 08:30 02/16/25 08:45 Temperature Pulse Rate 75 Respiratory Rate 24 Blood Pressure 124/79 112/70 Pulse Oximetry 92 02/16/25 08:45 02/16/25 09:00 02/16/25 09:00 Temperature Pulse Rate 67 67 Respiratory Rate 33 H 13 Blood Pressure 111/82 Pulse Oximetry 95 91 02/16/25 09:15 02/16/25 09:15 02/16/25 09:19 Temperature Pulse Rate 63 60 Respiratory Rate 16 Blood Pressure 115/75 115/75 Pulse Oximetry 90 L 02/16/25 09:30 02/16/25 09:30 02/16/25 09:45 Temperature Pulse Rate 69 65 Respiratory Rate 20 19 Blood Pressure 109/75 Pulse Oximetry 94 94 02/16/25 09:45 02/16/25 10:00 02/16/25 10:00 Temperature Pulse Rate 72 Respiratory Rate 22 Blood Pressure 108/84 108/70 Pulse Oximetry 93 02/16/25 10:18 02/16/25 10:18 02/16/25 10:30 Temperature Pulse Rate 72 86 Respiratory Rate 23 24 Blood Pressure 118/73 Pulse Oximetry 95 92 02/16/25 10:30 02/16/25 10:45 02/16/25 10:45 Temperature Pulse Rate 90 Respiratory Rate 17 Blood Pressure 114/82 103/82 Pulse Oximetry 92 02/16/25 11:00 02/16/25 11:01 02/16/25 11:01 Temperature Pulse Rate 92 H 89 Respiratory Rate 34 H 40 H Blood Pressure 109/63 Pulse Oximetry 94 93 02/16/25 11:15 02/16/25 11:15 02/16/25 11:30 Temperature Pulse Rate 87 86 Respiratory Rate 31 H 17 Blood Pressure 109/83 Pulse Oximetry 93 93 02/16/25 11:30 02/16/25 11:45 02/16/25 11:45 Temperature Pulse Rate 90 Respiratory Rate 36 H Blood Pressure 118/79 127/86 Pulse Oximetry 94 02/16/25 12:00 02/16/25 12:00 Temperature 97.5 F L Pulse Rate 88 Respiratory Rate 28 H Blood Pressure Pulse Oximetry Oxygen Delivery Method Room Air Oxygen Flow Rate 0 Const General: cooperative HENMT Head: normal to inspection Eyes General: appearance normal, both eyes and all related structures Neck Neck: normal visual inspection and full ROM Resp Effort & Inspection: normal respiratory effort Auscultation: clear to auscultation bilaterally Cardio Palpation: abnormal PMI Rhythm: abnormal rhythm Other: irregularly irregular Objective ECG Impression: Telemetry Atrial fibrillation with controlled ventricular rate. Labs 02/15/25 04:15 02/16/25 05:09 Labs: Laboratory Results - last 24 hr 02/15/25 02/15/25 02/16/25 17:05 22:06 05:09 Sodium 137 Potassium 3.1 L Chloride 99 Carbon Dioxide 30 BUN 45 H Creatinine 1.76 H Estimated GFR 31 L BUN/Creatinine Ratio 25.6 H Glucose 84 POC Whole Bld Glucose 170 H 159 H Calcium 8.5 02/16/25 02/16/25 02/16/25 07:42 08:08 08:21 Sodium Potassium Chloride Carbon Dioxide BUN Creatinine Estimated GFR BUN/Creatinine Ratio Glucose POC Whole Bld Glucose 54 L D 46 L 45 L* Calcium 02/16/25 02/16/25 02/16/25 08:41 09:11 09:33 Sodium Potassium Chloride Carbon Dioxide BUN Creatinine Estimated GFR BUN/Creatinine Ratio Glucose POC Whole Bld Glucose 80 67 L 96 Calcium 02/16/25 12:02 Sodium Potassium Chloride Carbon Dioxide BUN Creatinine Estimated GFR BUN/Creatinine Ratio Glucose POC Whole Bld Glucose 283 H D Calcium PFSH Medical History Anxiety Hypertension Type 2 diabetes mellitus Chronic constipation Hypothyroidism (acquired) Chronic atrial fibrillation Congestive heart failure Social History household members: significant other Smoking Status: Never smoker Type(s) of exercise: none Assessment & Plan Assessment and plan (1) Acute exacerbation of chronic heart failure: Status: Acute (2) Atrial fibrillation with rapid ventricular response: Status: Acute (3) Acute confusion: Status: Acute Plan I spoke with the hospitalist on-call Dr. Mc and informed him that his heart rate is very well controlled for last several hours. We can certainly send her home with heart failure regimen-guideline directed medical therapy and long-term anticoagulation. She needs a longitudinal follow-up as an outpatient to manage her atrial fibrillation and heart failure. Cardiac Medications recommended by the time of discharge: Apixaban 5 mg twice daily Carvedilol 25 mg twice daily Amiodarone 200 mg twice daily Lasix 40 mg twice daily Potassium chloride 20 mEq daily She is of course taking other medications for her asthma, anxiety depression and chronic muscle pains. Follow-up in the office in 2 weeks. Please send a copy of my notes to my office [phone]. Time-Based Coding :: [TOTAL MINUTES] spent with patient and on the chart (including review of chart, obtaining history, exam, reviewing outside data, placing orders, documenting exam and treatment plan, and counseling patient) on [DATE]. Quality VTE Deep Vein Thrombosis/Pulmonary Embolism Present on Admission: No
--- NOTE | 2025-02-16 16:15 | PT.IPTN ---
Current Diagnoses Unspecified atrial fibrillation (02/14/25) Heart failure, unspecified (02/14/25) Disorientation, unspecified (02/14/25) Physical Therapy Treatment Note M2 PT-IP Current Condition Start: 02/13/25 17:08 Freq: NEEDED Status: Active Protocol: Document 02/13/25 16:17 AB (Rec: 02/13/25 17:18 AB [id number]) Physical Therapy Current Condition Current Condition Evaluation Date 02/13/25 Treatment Diagnosis A-fib; CHF; difficulty in walkiing Onset Date 02/12/25 M3 PT-IP Subjective Start: 02/13/25 17:08 Freq: NEEDED Status: Active Protocol: Document 02/16/25 16:15 AB (Rec: 02/16/25 17:04 AB [id number]) Subjective Physical Therapy Visit Type Type Treatment Note Visit Start Time 16:15 Visit Stop Time 16:30 Number of WHISKEY FILTERER Visits 0 Physical Therapy Visit Comments Patient Comments agreeable to do PT M4 PT-IP Mobility and Gait Start: 02/13/25 17:08 Freq: NEEDED Status: Active Protocol: Document 02/16/25 16:15 AB (Rec: 02/16/25 17:04 AB [id number]) PT-Bed Mobility Assessment Sit to Supine Sit to Supine Standby Assistance PT-Transfer Assessment Sit to and From Stand Sit to and from Contact Guard Assistance,1 Person Assistance,Use of Stand Upper Extremities Equipment Transfer Assistive Gait Belt,Front Wheeled Walker Device Orthotic/Prosthetic No Devices or Brace: Comments Mobility Comments pt sitting on EOB. significant other in room. pt just got back to bed and nurse assisted pt. completed sit to stand from EOB CGA and assisted with brief management. pt agreed to ambulate in room but wants to go back to bed. nurse stated that pt has been up on the chair for awhile. sit to stand CGA and ambulated in room ~ 30 ft using FWW min A and cues. increase knee flexion with increase distance of ambulation and cued pt to stand up straight. pt needed consistent cues due to decrease safety awareness. pt sat on EOB. sit to supine SBA. positioned pt in bed. call light and table placed within reach. Gait Assessment Gait Gait Assistance Minimum Assistance,1 Person Assist Required: Distance (Feet) 30 Able to Maintain Yes Weight Bearing Status During Gait Assistive Devices Assistive Device Gait Belt,Front Wheeled Walker Orthotic/Prosthetic No Devices or Brace: Gait Deviations General Gait Pattern Decreased Stride Length,Decreased Feet Clearance,Step- to Gait Factors Limiting Gait Function Factors Limiting Decreased Activity Tolerance,Decreased Strength, Gait Function Difficulty Following Directions,Limited Range of Motion ,Poor Balance,Poor Safety Awareness M5 PT-IP Objective Assessments Start: 02/13/25 17:08 Freq: NEEDED Status: Active Protocol: Document 02/15/25 12:09 KJ (Rec: 02/15/25 12:14 KJ [id number]) Orientation Orientation/Cognition Level of Alertness Alert Orientation Name,Age,Birthday,Month,Date,Year,Day of Week,Place, Situation Safety Awareness Understands Safety Issues Memory Description No Deficits Noted M6 PT-IP Treatment Start: 02/13/25 17:08 Freq: NEEDED Status: Active Protocol: Document 02/16/25 16:15 AB (Rec: 02/16/25 17:04 AB [id number]) Physical Therapy Treatment Education Education Provided Safety M7 PT-IP Assessment and Plan Start: 02/13/25 17:08 Freq: NEEDED Status: Active Protocol: Document 02/16/25 16:15 AB (Rec: 02/16/25 17:04 AB [id number]) PT Summary Assessment and Plan Potential Rehabilitation Fair Potential Summary Impairments Pain,ROM,Strength,Balance,Coordination,Sensation,Tone, Cognition,Bed Mobility,Transfers,Gait,Activity Tolerance Progress Towards Slow Progress due to Activity Tolerance,Slow Progress - Goals Other Assessment Summary pt requiring min A with ambulation and max cues for safety. pt continues to have decrease safety awareness affecting mobility independence. pt plans to go home and her significant other can assist her at home. pt will benefit from HHPT. Goals Bed Mobility Goal Independent Transfer Goal Independent,Front Wheeled Walker Gait Goal Independent,Front Wheel Walker Gait Distance 150 Other Goals up/down 3 steps R rail ascending SBA Days to Meet Goals 10 Frequency of Treatment Frequency Of Once a Day Treatment Treatment Plan Physical Therapy Bed Mobility Training,Transfer Training,Gait Training, Treatment Plan Therapeutic Exercise,Balance Retraining,Discharge Planning,Hot or Cold Pack,Neuromuscular Re-ed, Coordination Retraining Precautions Other Precautions falls Recommendations To Nursing Amount of Assist 1 Person Assist Needed Discharge Recommendations PT Discharge Home with 28/12 Assist Available,Home Health Recommendations Transportation Needs Private Vehicle at Discharge - PT assist 1
[2025-02-16] MEDS: INSULIN GLARGINE 100 UNIT/ML 3ML PEN 20 UNIT SUBCUT (18:47)
[2025-02-16] MEDS: FLUTICASONE 120 SPRAY/16 GM SPRAY.SUSP NASAL (20:51)
[2025-02-17] VITALS: BP 125/87; PULSE 96; RESP 18; TEMP 36.5; O2SAT 95
[2025-02-17] MEDS: ACETAMINOPHEN 325 MG TABLET 650 MG PO (00:01)
[2025-02-17] MEDS: FUROSEMIDE 40 MG/4 ML VIAL IV ×2 (00:01→11:46)
[2025-02-17] MEDS: SODIUM CHLORIDE 0.9% FLUSH 10 ML IV ×2 (00:02→08:32)
[2025-02-17 04:00] VITALS: BP 125/88; PULSE 97; RESP 16; TEMP 36.2; O2SAT 96
[2025-02-17 05:53] LABS: Blood Urea Nitrogen 48 mg/dL (7-17); Calcium 8.0 mg/dL (8.4-10.2); Carbon Dioxide 30 mmol/L (22-32); Chloride 100 mmol/L (98-107); Estimated Glomerular Filt Rate 28 mL/min (>60); Glucose 60 mg/dL (70-99); HEMOLYSIS < 15 (0-50); Potassium 3.3 mmol/L (3.4-5.1); Sodium 136 mmol/L (137-145)
[2025-02-17] MEDS: LEVOTHYROXINE 125 MCG TABLET PO (06:15)
[2025-02-17 07:59] VITALS: BP 132/99; PULSE 104; RESP 17; O2SAT 94
--- NOTE | 2025-02-17 08:04 | P.DS_ITS ---
History of Present Illness History of Present Illness Date Patient Seen: 02/17/25 Chief complaint: Afib RVR, weakness Narrative: 69-year-old female with past medical history of atrial fibrillation on Eliquis, severe chronic systolic heart failure with an EF of 25%, hypertension, anxiety and diabetes presents with generalized weakness and possible confusion. Per report the patient's boyfriend who she lives with called EMS because of possible increased confusion. It was reported that the patient was not oriented to place and was complaining of mild abdominal pain. In addition it is unclear if the patient has been compliant with her medication which include Lasix, Eliquis, metoprolol and Synthroid. The patient also was recently hospitalized at [facility] with similar complaints of confusion and abdominal pain. The patient then did have atrial fibrillation with RVR. However during my interview the patient was oriented to place person and time. The patient denies any fever, chills, nausea, vomiting, diarrhea, chest pain or shortness of breath. In the emergency room, the patient was hemodynamically stable but was in A-fib with RVR. Labs were relatively benign except for creatinine 1.4 glucose of 192 troponin 0.06 and BNP of 18,900. AST mildly elevated at [address] of the head shows no acute finding and x-ray of the abdomen shows only mild stool without signs of small bowel obstruction. Chest x-ray however did not show obvious signs of pulmonary edema. The patient was given IV Lasix 80 mg as well as diltiazem drip was initiated. Dr. Velázquez from cardiology was consulted and a request for admission for ongoing management of A-fib with RVR. Discharge Providers Provider Date of admission: 02/14/25 10:15 Discharge Date: 02/17/25 Consults: 02/12/25 23:51 Consult to Cardiology Routine Comment: Consulting Provider: Hi Velázquez Reason for consultation: AFib with rapid ventricular response, acute congestive heart failure, eleva Has provider been notified: Yes 02/13/25 10:19 Consult to Physical Therapy Evaluate & Treat Comment: Physician Instructions: Evaluate and Treat 02/13/25 17:23 Consult to Occupational Therapy Evaluate & Treat Comment: Physician Instructions: Evaluate and treat 02/14/25 13:28 Consult to Home Health Routine Comment: Reason For Exam: Home health upon discharge Discharge provider: Tasha Mc MD Summary Hospital Course Hospital Course: Acute on chronic systolic congestive heart failure with rate related diastolic dysfunction secondary to AFib and rapid ventricular response * Heart rate continues to be variable, was able to come off diltiazem on 02/16. * Continue diuresis at home with Furosemide 40 mg BID * Amiodarone 200 mg b.i.d. added, continue at home * Coreg 50 mg b.i.d., continue previous dose * Discharge plan per cardiology * Continue anticoagulation with Apixaban * Potassium supplementation - 20 meq IV on day of discharge for level of 3.3. Increased home dose to 20 meq qd. Urinary tract infection * E coli/Proteus growing on urine culture * IV ceftriaxone started on 02/16. Likely related to symptoms of weakness and confusion on initial admission. * Discharged on Cipro to complete a 7 day course. Chronic medical conditions: * Anxiety * Hypertension * Type 2 diabetes mellitus * Chronic constipation * Hypothyroidism (acquired) Significant tinea pedis on the left foot. This will be treated with topical terbinafine at home. Status at Discharge Cognitive/behavioral status at discharge: at baseline, oriented Functional status at discharge: uses cane/walker Overall status at discharge: patient is progressing back to baseline Time Spent with Patient Time spent: Greater than 30 minutes Exam Vital Signs (past 8 hours): - 02/17/25 04:00 02/17/25 07:59 Temperature 97.1 F L Pulse Rate 97 H 104 H Respiratory Rate 16 17 Blood Pressure 125/88 132/99 H Pulse Oximetry 96 94 Oxygen Flow Rate 0 0 Oxygen Delivery Method Room Air Oxygen Flow Rate 0 Narrative Exam Narrative: Alert and oriented x3. No apparent distress Lungs are clear to auscultation bilaterally Extremities have no ankle edema Heart is irregular tachycardic. No murmur. Significant tinea pedis on the left foot. This will be treated with topical terbinafine at home. Objective Labs 02/15/25 04:15 02/17/25 05:03 Labs: Laboratory Results - last 24 hr 02/16/25 02/16/25 02/16/25 08:08 08:21 08:41 Sodium Potassium Chloride Carbon Dioxide BUN Creatinine Estimated GFR BUN/Creatinine Ratio Glucose POC Whole Bld Glucose 46 L 45 L* 80 Calcium 02/16/25 02/16/25 02/16/25 09:11 09:33 12:02 Sodium Potassium Chloride Carbon Dioxide BUN Creatinine Estimated GFR BUN/Creatinine Ratio Glucose POC Whole Bld Glucose 67 L 96 283 H D Calcium 02/16/25 02/16/25 02/17/25 17:05 20:39 05:03 Sodium 136 L Potassium 3.3 L Chloride 100 Carbon Dioxide 30 BUN 48 H Creatinine 1.94 H Estimated GFR 28 L BUN/Creatinine Ratio 24.7 H Glucose 60 L POC Whole Bld Glucose 268 H 116 H D Calcium 8.0 L 02/17/25 07:49 Sodium Potassium Chloride Carbon Dioxide BUN Creatinine Estimated GFR BUN/Creatinine Ratio Glucose POC Whole Bld Glucose 58 L Calcium PFSH Medical History Anxiety Hypertension Type 2 diabetes mellitus Chronic constipation Hypothyroidism (acquired) Chronic atrial fibrillation Congestive heart failure Social History household members: significant other Smoking Status: Never smoker Type(s) of exercise: none Discharge Plan Discharge Plan Patient Disposition: Home Health Service Transfer to: [facility] Provider Discharge Comment: Follow up with your doctor in [place] in 1 week. Discharge orders & Medications Prescriptions: New amiodarone 200 mg Tablet 200 mg PO BID Qty: 60 0RF furosemide [Lasix] 40 mg tablet 40 mg PO BID Qty: 60 0RF potassium chloride 20 mEq tablet extended release 20 meq PO DAILY Qty: 30 0RF terbinafine HCl 1 % cream 1 applic topical BID Qty: 30 0RF ciprofloxacin HCl [Cipro] 500 mg tablet 500 mg PO BID Qty: 6 0RF Continued paroxetine HCl 10 mg tablet 10 mg PO DAILY paroxetine HCl 40 mg tablet 40 mg PO DAILY sacubitril-valsartan [Entresto] 24-26 mg tablet 1 tab PO BID Gemtesa 75 mg tablet 75 mg PO DAILY pantoprazole 20 mg tablet,delayed release (DR/EC) 20 mg PO DAILY levothyroxine 125 mcg tablet 125 mcg PO DAILY hydroxyzine HCl 25 mg tablet 25 mg PO Q6H PRN (Reason: anxiety) gabapentin 100 mg capsule 100 mg PO 3XD estradiol 0.01 % (0.1 mg/gram) cream 1 g vaginal WEEKLY lisinopril 40 mg tablet 40 mg PO DAILY ondansetron 4 mg tablet,disintegrating 4 mg PO 3XD PRN (Reason: nausea/vomiting) fluticasone propionate 50 mcg/actuation spray,suspension 1 spray intranasal BID metformin 500 mg tablet extended release 24 hr 1,000 mg PO BID insulin glargine [Lantus Solostar U-100 Insulin] 100 unit/mL (3 mL) insulin pen 35 unit SUBCUT BID cyclobenzaprine 10 mg tablet 10 mg PO 3XD carvedilol 25 mg tablet 50 mg PO BID chlorthalidone 25 mg tablet 25 mg PO DAILY (DME) True Metrix Glucose Test Strip Strip 1 strip MISCELLANEOUS 5XD Eliquis 5 mg tablet 5 mg PO BID Discontinued potassium chloride 10 mEq tablet extended release 10 meq PO DAILY furosemide 20 mg tablet 20 mg PO DAILY Diet/Activity/Treatments Diet: Low-cholesterol Visit Report/Discharge Packet Stand Alone Forms: Patient Portal/API, Stroke Signs & Symptoms Quality VTE Deep Vein Thrombosis/Pulmonary Embolism Present on Admission: No
[2025-02-17 08:30] VITALS: BP 132/99; PULSE 110
[2025-02-17] MEDS: POTASSIUM CHLORIDE 10 MEQ TAB PO (08:31)
[2025-02-17] MEDS: POTASSIUM CHLORIDE IN WATER 10 MEQ/100 ML PIGGYBACK 100 MEQ IV ×2 (08:31→09:45)
[2025-02-17] MEDS: CYCLOBENZAPRINE 10 MG TABLET PO (08:31)
[2025-02-17] MEDS: APIXABAN 5 MG TABLET PO (08:31)
[2025-02-17] MEDS: GABAPENTIN 100 MG CAPSULE PO (08:32)
[2025-02-17] MEDS: PANTOPRAZOLE DR 20 MG TABLET PO (08:32)
[2025-02-17] MEDS: AMIODARONE 200 MG TABLET PO (08:32)
[2025-02-17] MEDS: INSULIN LISPRO 100 UNIT/ML 3ML VIAL SUBCUT (11:46)
--- NOTE | 2025-02-17 11:47 | CM.DPNOTE ---
Addendum entered by RHIANNON Stoddard 02/17/25 14:50: DIRECTOR SOCIAL emailed signed dc summary to lisa LARSON Original Note: DCP Note DIRECTOR SOCIAL reviewed EMR per chart review/provider report, cleared to dc home with HH today. DIRECTOR SOCIAL met with pt in room. confirms BF can pick her up, unsure what time he'll be there. remains agreeable to [facility]. provided brochure. denies other DCP needs or questions DIRECTOR SOCIAL will send dc summary to Lisa TREVINO when available. P: dc home today with Lisa TREVINO and BF support, will continue to follow as needed for DCP coordination RHIANNON Stoddard
[2025-02-17 11:52] VITALS: BP 115/72; PULSE 105; RESP 23; O2SAT 97
--- NOTE | 2025-02-17 14:06 | PC.NURSE ---
Discharge order received. IV removed, telemetry removed, medications removed from nurse traffic observer. Reviewed discharge instructions and new prescriptions with patient and visitor. All belongings sent with pt. Pt wheeled to vehicle by hospital staff.
--- NOTE | 2025-02-21 07:59 | PM.HP.1 ---
History of Present Illness History of Present Illness Date Patient Seen: 02/13/25 Chief complaint: Afib RVR, weakness Narrative: H&P: S: 69-year-old female with past medical history of atrial fibrillation on Eliquis, severe chronic systolic heart failure with an EF of 25%, hypertension, anxiety and diabetes presents with generalized weakness and possible confusion. Per report the patient's boyfriend who she lives with called EMS because of possible increased confusion. It was reported that the patient was not oriented to place and was complaining of mild abdominal pain. In addition it is unclear if the patient has been compliant with her medication which include Lasix, Eliquis, metoprolol and Synthroid. The patient also was recently hospitalized at [facility] with similar complaints of confusion and abdominal pain. The patient then did have atrial fibrillation with RVR. However during my interview the patient was oriented to place person and time. The patient denies any fever, chills, nausea, vomiting, diarrhea, chest pain or shortness of breath. In the emergency room, the patient was hemodynamically stable but was in A-fib with RVR. Labs were relatively benign except for creatinine 1.4 glucose of 192 troponin 0.06 and BNP of 18,900. AST mildly elevated at [address] of the head shows no acute finding and x-ray of the abdomen shows only mild stool without signs of small bowel obstruction. Chest x-ray however did not show obvious signs of pulmonary edema. The patient was given IV Lasix 80 mg as well as diltiazem drip was initiated. Dr. Velázquez from cardiology was consulted and a request for admission for ongoing management of A-fib with RVR. O: VS below. NAD, alert and oriented. Fluent speech. Lungs are clear, normal rate and effort. Heart is regular, no murmur gallop or rub. Abdomen is soft, non distended. Extremities are free of edema. A/P: 1. Atrial fibrillation with RVR. 2. Mild acute on chronic severe systolic heart failure with an EF of 25%. 3. Mild elevated troponin. Likely due to demand ischemia from A-fib with RVR. 4. Confusion. Patient is back to baseline with her mentation. 5. Diabetes 2. PLAN: -cardiology consultation appreciated. Recommendations include simplifying her med skin rash and and stopping chlorthalidone, switching Lasix to torsemide 40 daily, continuing carvedilol b.i.d. for rate control as well as Entresto. Recommendation to stop lisinopril and keep other medications without change. Apixaban as recommended to prevent thromboembolic risk of atrial fibrillation. DVT prophylaxis Eliquis. CODE STATUS full code. She requires a 2nd midnight in the hospital for ongoing management of her atrial fibrillation and acute systolic heart failure. Disposition likely home in 1-2 days PFSH Medical History Anxiety Hypertension Type 2 diabetes mellitus Chronic constipation Hypothyroidism (acquired) Chronic atrial fibrillation Congestive heart failure Social History household members: significant other Smoking Status: Never smoker Type(s) of exercise: none Meds Home Medications and Allergies Home Medications ?Medication ?Instructions ?Recorded ?Confirmed ?Type apixaban 5 mg tablet (Eliquis) 5 mg PO BID 02/13/25 02/13/25 History blood sugar diagnostic (True 02/13/25 02/13/25 History Metrix Glucose Test Strip) carvedilol 25 mg tablet 50 mg PO BID 02/13/25 02/13/25 History chlorthalidone 25 mg tablet 25 mg PO DAILY 02/13/25 02/13/25 History cyclobenzaprine 10 mg tablet 10 mg PO 3XD 02/13/25 02/13/25 History estradiol 0.01% (0.1 mg/gram) 1 g vaginal WEEKLY 02/13/25 02/13/25 History vaginal cream fluticasone propionate 50 1 spray intranasal BID 02/13/25 02/13/25 History mcg/actuation nasal spray,suspension gabapentin 100 mg capsule 100 mg PO 3XD 02/13/25 02/13/25 History hydroxyzine HCl 25 mg tablet 25 mg PO Q6H PRN anxiety 02/13/25 02/13/25 History insulin glargine 100 unit/mL (3 35 unit SUBCUT BID 02/13/25 02/13/25 History mL) subcutaneous pen (Lantus Solostar U-100 Insulin) levothyroxine 125 mcg tablet 125 mcg PO DAILY 02/13/25 02/13/25 History lisinopril 40 mg tablet 40 mg PO DAILY 02/13/25 02/13/25 History metformin 500 mg tablet,extended 1,000 mg PO BID 02/13/25 02/13/25 History release 24 hr ondansetron 4 mg disintegrating 4 mg PO 3XD PRN nausea/vomiting 02/13/25 02/13/25 History tablet pantoprazole 20 mg tablet,delayed 20 mg PO DAILY 02/13/25 02/13/25 History release paroxetine HCl 10 mg tablet 10 mg PO DAILY 02/13/25 02/13/25 History paroxetine HCl 40 mg tablet 40 mg PO DAILY 02/13/25 02/13/25 History sacubitril 24 mg-valsartan 26 mg 1 tab PO BID 02/13/25 02/13/25 History tablet (Entresto) vibegron 75 mg tablet (Gemtesa) 75 mg PO DAILY 02/13/25 02/13/25 History amiodarone 200 mg tablet 200 mg PO BID #60 tabs 02/17/25 Rx ciprofloxacin HCl 500 mg tablet 500 mg PO BID #6 tabs 02/17/25 Rx (Cipro) furosemide 40 mg tablet (Lasix) 40 mg PO BID #60 tabs 02/17/25 Rx potassium chloride 20 mEq 20 meq PO DAILY #30 tabs 02/17/25 Rx tablet,extended release terbinafine HCl 1 % topical cream 1 applic topical BID Foot Fungal 02/17/25 Rx Rash #30 grams Allergies Allergy/AdvReac Type Severity Reaction Status Date / Time No Known Drug Allergies Allergy Verified 02/12/25 17:00 Review of Systems Review of Systems Narrative: All else reviewed and otherwise unremarkable except as noted in the history and physical. Exam Vital Signs (past 8 hours): Oxygen Delivery Method Room Air Oxygen Flow Rate 0 Objective Imaging Multiple studies: : Radiologist's impression: Abdomen x-ray: Mild stool without obstruction. Head CT: No acute intracranial pathology. Chest x-ray: Stable cardiomegaly. No acute pulmonary process. Labs 02/15/25 04:15 02/17/25 05:03 Assessment & Plan Time-Based Coding :: 35 min spent with patient and on the chart (including review of chart, obtaining history, exam, reviewing outside data, placing orders, documenting exam and treatment plan, and counseling patient) on 02/13. Quality VTE Deep Vein Thrombosis/Pulmonary Embolism Present on Admission: No MIPS - Admit I confirm the patient?s Advance Care Plan is present, Code status is documented, Surrogate decision maker is in patient?s record [If Yes, STOP here]: Yes [facility] - Meds 'Current medications' to include all prescriptions, [id number] products, herbals, cannabis/cannabidiol products, and vitamin/mineral/dietary (nutritional) supplements. I have utilized all available resources to obtain, update, or review the patient?s current medications. [If Yes, STOP here]: Yes
== END 2025-02-17 14:08 | disposition home health service (06) | DRG 291 ==
LOC: ED 20:22 → AC 23:11 → ICU 23:51 → AC 02-13 11:03
PROVIDERS: Hospitalist; Admitting Provider Internal Medicine; Emergency Provider Emergency Medicine; Referring Provider Emergency Medicine; Visit Provider Internal Medicine
DX: I11.0 Hypertensive heart disease with heart failure (principal); G93.41 Metabolic encephalopathy; I50.43 Acute on chronic combined systolic (congestive) and diastolic (congestive) heart failure; N39.0 Urinary tract infection, site not specified; E11.9 Type 2 diabetes mellitus without complications; E66.812 Obesity, class 2; I48.0 Paroxysmal atrial fibrillation; B96.20 Unspecified Escherichia coli [E. coli] as the cause of diseases classified elsewhere; B96.4 Proteus (mirabilis) (morganii) as the cause of diseases classified elsewhere; B35.3 Tinea pedis; F41.9 Anxiety disorder, unspecified; R79.89 Other specified abnormal findings of blood chemistry; K59.09 Other constipation; E03.9 Hypothyroidism, unspecified; Z79.01 Long term (current) use of anticoagulants; Z68.35 Body mass index [BMI] 35.0-35.9, adult; Z91.148 Patient's other noncompliance with medication regimen for other reason; Z79.890 Hormone replacement therapy; Z87.440 Personal history of urinary (tract) infections; Z79.84 Long term (current) use of oral hypoglycemic drugs; Z79.4 Long term (current) use of insulin
CPT/HCPCS: 36415; 70450; 71045; 74018; 80048; 80053; 80305; 80320; 81001; 82140; 82962; 83690; 83735; 83880; 84443; 84484; 85025; 85027; 87077; 87086; 87186; 87797; 93005; 96365; 96366; 96367; 97116; 97129; 97162; 97166; 97530; 99284; G0378; A9270; J0696; J1644; J1815; J1938; J3475